=== PATIENT | male | born 1940 | race Caucasian/White ===

== ENCOUNTER 2017-01-27 10:00 | Outpatient (RCR) | payer MEDICARE, OTHER ==
--- NOTE | 2017-01-19 16:19 | PT INITIAL EVALUATION ---
MEDICAL DIAGNOSIS: Right Knee Pain and Effusion, Gastrocnemius Strain TREATMENT DIAGNOSIS: Right Knee Pain and Effusion, Gastrocnemius Strain DATE OF ONSET: 01/16/17 SUBJECTIVE: Kevon is a 76 year-old male presenting to physical therapy following recent injury to his R knee that occurred when going up stairs on 01/13/17. Pt reported that he felt a "pop" when he got to the last two stairs and had intense pain and since has had increased pain and swelling in the posterior and lateral knee. Pt had an x-ray which was negative for fracture, and then went to see an orthopaedic surgeon who suggested he try PT. Pt has been wearing neoprene sleeve and was told to ice his knee to decrease pain and inflammation. However, he reports that he has not done any icing. Pain was initially posterior and lateral in the knee and calf, but since is just in the lateral knee rated at 4-5/10. Pain increases with twisting and pressure, but goes away completely with rest. REHAB PROBLEM LIST: Increased Pain Decreased ROM Decreased Strength Decreased Endurance Decreased Function Decreased ADL's Decreased Mobility Decreased Gait PREVIOUS MEDICAL HISTORY: See EMR OCCUPATION: OBJECTIVE: Pt has mild swelling surrounding the R knee. ROM: R knee ROM: 2-0-130 with pain/pressure in end ranges Strength: LE MMT not tested secondary to pain. Palpation: Pt is tender to palpation with pitting edema along the lateral joint line. Pt also is tender to palpation at mid lateral gastroc with notable soft tissue nodule. Sensation: Sensation intact to light touch. Special Tests: All ligamentous tests (-), Apply's grind (+), Medial pivot shift (+), Marie Squeeze (-) Mobility: Patella tracking is good without deviation. Gait: Pt has decreased push off on the R LE into PF. Other Objective Findings: FOTO Knee Outcome Measure: 39.5/50 ASSESSMENT: Pt shows signs and symptoms consistent with R lateral meniscal tear as well as lateral gastrocnemius strain with likely partial tear of the proximal aspect with retraction of tissue. MRI is recommended for visualization on the extent of the gastroc tear and if surgical intervention is indicated. Referring provider's office was contacted. Physical therapy is indicated to correct the above listed deficits and return patient to prior level of function in ADL's and recreational activities. Short Term Goals In 3 weeks pt will improve R Knee ROM to full without onset of pain from reductions in swelling for improved mobility with ADL's. In 4 weeks pt will increase R knee strength as tested by MMT to to that of the L knee for improved function with ADL's and recreational activities. In 6 weeks pt will increase R gastroc strength to equal to that of the L knee for improved function with ADL's and recreational activities. Patient's Goals Decrease pain and return to PLOF PLAN: Patient to be seen for Manual Therapy/STM/MET Ice/Heat Range of Motion Ultrasound Stretching Iontophoresis Neuromuscular Re-ed Closed Chain Program Electrical Stim Posture/Body mechanics Gait Trg/Balance Trg Biofeedback Home Exercise Program Mech./Manual Traction Therapeutic Activities 3x/Week for 6 Weeks If you have any questions, comments, or concerns about this report or plan, please contact me at . Thank you, Mima Fleming, PT, DPT, CLT MTDD
[~2017-01-27 10:00] MED LIST: ALE70 PO; ASPI-715 PO; ATOM80CA3 PO; CALC600T59 PO; CEP500 PO; CHOL10005 PO; CRAN400C2 PO; EZET1TAB53 PO; FLAX100027 PO; ISOS30TA51 PO; LANS30CA70 PO; METH5TAB85 PO; METO25TA91 PO; MULT-1335 PO; NIT4 SL
--- NOTE | 2017-02-16 09:24 | PT PLAN OF CARE ---
Physician: Jayden Parham MD Patient is being seen: 2-3x/Week Therapist: Mima Fleming, PT, DPT, CLT Medical Diagnosis: Right Knee Pain and Effusion, Gastrocnemius Strain Treatment Diagnosis: Right Knee Pain and Effusion, Gastrocnemius Strain Date of Onset: 01/16/17 Date of Initial Evaluation: 01/19/17 Date patient was last seen: 01/27/17 Number of treatments: 4 Number of cancellations/No shows: 0 INTERVENTIONS: Manual Therapy/STM/MET Ice/Heat Range of Motion Ultrasound Stretching Iontophoresis Neuromuscular Re-ed Closed Chain Program Electrical Stim Posture/Body mechanics Gait Trg/Balance Trg Biofeedback Home Exercise Program Mech./Manual Traction Therapeutic Activities GOALS: In 3 weeks pt will improve R Knee ROM to full without onset of pain from reductions in swelling for improved mobility with ADL's. MET In 4 weeks pt will increase R knee strength as tested by MMT to to that of the L knee for improved function with ADL's and recreational activities. In Progress In 6 weeks pt will increase R gastroc strength to equal to that of the L knee for improved function with ADL's and recreational activities. In Progress PATIENT'S GOAL: Decrease pain and return to PLOF Status of Patient's Goals: 1/3 MET, 2/3 Progressing Patient Compliance: Good Prognosis: Good Reasons for discharge from therapy: Kevon is to discharge from physical therapy at this time secondary to MD preference. At the time of discharge PT and MD correspondence on gastroc imaging for muscle tear was occurring for assessment on if surgical intervention was warranted for successful repair with this patient's high level of activity. Throughout treatment pt showed improved progress in decreasing pain status and maintaining knee and ankle ROM. Pt is to seek PT at a later time, when cleared by MD, to address lingering deficits for return to prior level of function. ROM: R knee ROM: 2-0-130 Strength: LE MMT not tested secondary to pain. Palpation: Pt is tender to palpation with pitting edema along the lateral joint line. Pt also is tender to palpation at mid lateral gastroc with notable soft tissue nodule. Special Tests: All ligamentous tests (-), Apply's grind (+), Medial pivot shift (+), Marie Squeeze (-) Mobility: Patella tracking is good without deviation. If you have any questions or concerns, please feel free to contact me at [phone]. Thank you, Mima Fleming, PT, DPT, CLT MTDD
== END 2017-01-27 18:00 | disposition home or self-care (01) ==
LOC: PT 10:00
PROVIDERS: ATTEND Orthopaedic Surgery
DX: S86.111A Strain of other muscle(s) and tendon(s) of posterior muscle group at lower leg level, right leg, initial encounter (principal); M25.561 Pain in right knee; M25.461 Effusion, right knee; X50.9XXA Other and unspecified overexertion or strenuous movements or postures, initial encounter
CPT/HCPCS: 97162

== ENCOUNTER 2017-05-22 11:00 | Outpatient (RCR) | payer MEDICARE, OTHER ==
[2017-04-19 13:32] VITALS: BP_SYST 118; BP_SYST 92; BP_DIAS 60; BP_DIAS 80
[2017-04-21 17:32] VITALS: BP 110/72
[2017-04-21 17:33] VITALS: BP 122/72
[2017-04-24 18:04] VITALS: BP 108/64
[2017-04-24 18:05] VITALS: BP 92/58
[2017-05-01 12:43] VITALS: BP_SYST 122; BP_SYST 138; BP_DIAS 64; BP_DIAS 70
[2017-05-05 17:07] VITALS: BP 118/64
[2017-05-05 17:08] VITALS: BP 110/64
[2017-05-08 17:35] VITALS: BP 132/70
[2017-05-08 17:36] VITALS: BP 117/64
[2017-05-10 12:45] VITALS: BP 118/64
[2017-05-10 12:46] VITALS: BP 128/80
[2017-05-12 12:49] VITALS: BP_SYST 115; BP_SYST 118; BP_DIAS 70; BP_DIAS 76
[2017-05-15 12:48] VITALS: BP 124/66
[2017-05-15 12:49] VITALS: BP 104/78
[2017-05-17 12:49] VITALS: BP 120/68
[2017-05-17 12:50] VITALS: BP 120/78
[2017-05-19 13:36] VITALS: BP 117/70
[2017-05-19 13:37] VITALS: BP 118/84
[2017-05-22 16:40] VITALS: BP 118/72
[2017-05-22 16:41] VITALS: BP 128/80
== END 2017-05-22 18:00 | disposition home or self-care (01) ==
LOC: CARD 11:00
PROVIDERS: ATTEND Internal Medicine Cardiovascular Disease
DX: I35.9 Nonrheumatic aortic valve disorder, unspecified (principal); Z95.1 Presence of aortocoronary bypass graft; I73.00 Raynaud's syndrome without gangrene
CPT/HCPCS: 93798

== ENCOUNTER → 2017-08-31 | Outpatient (CLI) | payer MEDICARE, OTHER ==
[2017-08-31 12:10] LABS: PLATELET COUNT, AUTOMATED 183 K/uL (150-450)
== END ==
LOC: LAB 11:58
PROVIDERS: ATTEND Internal Medicine
DX: R53.83 Other fatigue (principal)
CPT/HCPCS: 36415; 82728; 85025; 85045

== ENCOUNTER 2017-09-16 12:22 | Emergency (ER) | payer MEDICARE, OTHER ==
[~2017-09-16 12:22] MED LIST changes: -FLUO40CA76 PO; -ROSU20TA23 PO
[2017-09-16] MEDS ORDERED: NS(*) 0.9% 500 ML BAG 500 ML IV ONE (12:31)
--- NOTE | 2017-09-16 12:37 | ER Report ---
History and Physical Time Seen By MD: 12:00 Hx. of Stated Complaint: PATIENT REPORTS THAT HE HASN'T HAD A BOWEL MOVEMENT SINCE MONDAY HPI/ROS CHIEF COMPLAINT: Constipation HISTORY OF PRESENT ILLNESS: This is a 76-year-old male who presents to the emergency department via EMS for concerns of constipation. Patient states that he's not had a bowel movement for 2 days. Having significant abdominal pain. According to EMS the patient was laying on the ground when they arrived, as the pain was so intense. Patient states he did have a colonoscopy approximately 2 weeks ago at [facility]. Patient has had abdominal surgery. Patient was given Zofran and fentanyl and round, patient states the pain and nausea have improved. However patient does appear to be anxious and uncomfortable. Chills no fever. No chest pain or shortness of breath. Patient has also had aortic valve replacement. No rashes or headaches. REVIEW OF SYSTEMS: Constitutional: As above. Eyes: No discharge. ENT: No sore throat. Cardiovascular: No chest pain, no palpitations. Respiratory: No cough, no shortness of breath. Gastrointestinal: As above. Genitourinary: No hematuria. Musculoskeletal: No back pain. Skin: No rashes. Neurological: No headache. Allergies: Coded Allergies: No Known Allergies (Verified Allergy, Mild, 05/21/15) Home Meds Reported Medications Fluoxetine Hcl (PROZAC) 40 Mg Capsule, 40 MG PO QDAY, CAPSULE 09/16/17 Rosuvastatin Calcium (CRESTOR) 20 Mg Tablet, 10 MG PO QDAY 09/16/17 Cholecalciferol (Vitamin D3) (VITAMIN D3) 1,000 Unit Tablet, 1000 UNIT PO DAILY , TAB 05/21/15 Flaxseed Oil (Flax Oil) 1,000 Mg Capsule, 1000 MG PO DAILY, 0 Refills 06/12/09 Aspirin (Aspirin) 81 Mg Tablet.dr, 81 MG PO DAILY, 0 Refills 06/12/09 Multivitamins W-Minerals (Multiple Vitamin) 1 Tab Tablet, 1 TAB PO DAILY, 0 Refills 06/12/09 Metoprolol Succinate (Toprol Xl) 25 Mg Tab.sr.24h, 12.5 MG PO DAILY, 0 Refills 06/12/09 Lansoprazole (Prevacid) 30 Mg Capsule.dr, 30 MG PO QDAY, 0 Refills 06/12/09 Nitroglycerin (Nitroquick) 0.4 Mg Subl, 0.4 MG SL PRN, 0 Refills 06/12/09 Discontinued Reported Medications Methylphenidate Hcl (RITALIN) 5 Mg Tablet, PO DAILY 05/21/15 Ezetimibe/Simvastatin (Vytorin 10-40 Mg Tablet) 1 Tab Tablet, 1 TAB PO DAILY, 0 Refills 06/12/09 Isosorbide Mononitrate (Imdur) 30 Mg Tab.sr.24h, 30 MG PO QDAY, 0 Refills 06/12/09 Past Medical/Surgical History The patient has a past medical and surgical history of bypass, heart attack, angina, CABG, hypertension, hypercholesterolemia, urinary tract infections, arthritis, chronic back pain, hard of hearing, wears glasses, depression, hernia repair, back surgery. Reviewed Nurses Notes: Yes Hx Smoking: No Smoking Status: Never Smoker Hx Substance Use Disorder: No Hx Alcohol Use: No Constitutional Vital Sign - Last 24 Hours 09/16/17 09/16/17 09/16/17 09/16/17 12:22 12:24 12:48 12:52 Temp 97.9 Pulse ??? 55 B/P (MAP) 134/80 (98) 134/80 117/67 (84) Pulse Ox 94 09/16/17 09/16/17 09/16/17 09/16/17 13:00 13:15 13:22 13:45 B/P (MAP) 131/79 (96) 111/69 (83) 113/65 (81) Pulse Ox 91 09/16/17 09/16/17 09/16/17 09/16/17 13:52 14:00 14:15 14:30 Pulse 65 66 68 B/P (MAP) 116/71 (86) 120/67 (84) 110/70 (83) Pulse Ox 94 86 88 09/16/17 09/16/17 09/16/17 15:00 16:34 16:35 Pulse 70 74 B/P (MAP) 118/74 (89) Pulse Ox 92 92 Physical Exam General Appearance: The patient is alert, has no immediate need for airway protection and no signs of toxicity, appears anxious. Eyes: Pupils equal and round no pallor or injection. ENT, Mouth: Mucous membranes are moist. Respiratory: There are no retractions, lungs are clear to auscultation. Cardiovascular: Regular rate and rhythm, distant, no murmurs, clicks or rubs. Gastrointestinal: Abdomen is firm, tenderness to the lower quadrants and the left upper quadrant. Left upper quadrant has continuous sounding bowels. Distant tinkles in the right lower quadrant, absent in the left lower quadrant. Intermittent tinkles to the right upper quadrant. No masses. Neurological: Alert and oriented 4. Moving all extremities. Following all commands. No focal neuro deficits. Skin: Warm and dry, no rashes. Musculoskeletal: Neck is supple non tender. Extremities are nontender, nonswollen and have full range of motion. DIFFERENTIAL DIAGNOSIS: After history and physical exam differential diagnosis was considered for abdominal pain including but not limited to appendicitis, cholecystitis, gastritis and urinary tract infection. Medical Decision Making Data Points Result Diagram: 09/16/17 1220 09/16/17 1220 Laboratory Hematology Test 09/16/17 12:20 09/16/17 13:51 Red Blood Count 5.15 M/uL (4.00-5.60) Mean Corpuscular Volume 89.1 fL (80.0-96.0) Mean Corpuscular Hemoglobin 31.1 pg (26.0-33.0) Mean Corpuscular Hemoglobin Concent 34.9 g/dL (32.0-36.0) Red Cell Distribution Width 14.7 % (11.5-14.5) Mean Platelet Volume 8.0 fL (7.2-11.1) Neutrophils (%) (Auto) 75.4 % (39.4-72.5) Lymphocytes (%) (Auto) 17.4 % (17.6-49.6) Monocytes (%) (Auto) 6.3 % (4.1-12.4) Eosinophils (%) (Auto) 0.5 % (0.4-6.7) Basophils (%) (Auto) 0.4 % (0.3-1.4) Nucleated RBC Relative Count (auto) 0.1 /100WBC Neutrophils # (Auto) 5.6 K/uL (2.0-7.4) Lymphocytes # (Auto) 1.3 K/uL (1.3-3.6) Monocytes # (Auto) 0.5 K/uL (0.3-1.0) Eosinophils # (Auto) 0.0 K/uL (0.0-0.5) Basophils # (Auto) 0.0 K/uL (0.0-0.1) Nucleated RBC Absolute Count (auto) 0.01 K/uL Peripheral Blood Smear No Y/N Sodium Level 136 mmol/L (137-145) Potassium Level 4.6 mmol/L (3.5-5.0) Chloride Level 99 mmol/L (98-107) Carbon Dioxide Level 27 mmol/L (22-30) Blood Urea Nitrogen 23 mg/dl (9-21) Creatinine 0.90 mg/dl (0.66-1.25) Glomerular Filtration Rate Calc > 60.0 Random Glucose 109 mg/dl (75-110) Calcium Level 10.1 mg/dl (8.4-10.2) Total Bilirubin 0.6 mg/dl (0.2-1.3) Aspartate Amino Transf (AST/SGOT) 33 U/L (0-35) Alanine Aminotransferase (ALT/SGPT) 35 U/L (0-56) Alkaline Phosphatase 65 U/L (0-126) Total Protein 7.2 g/dl (6.3-8.2) Albumin 4.5 g/dl (3.5-5.0) Urine Color Yellow Urine Clarity Clear Urine pH 5.0 pH (4.8-9.5) Urine Specific Cent[place] 1.030 Urine Protein Negative mg/dL (NEGATIVE) Urine Glucose (UA) Negative mg/dL (NEGATIVE) Urine Ketones Trace mg/dL (NEGATIVE) Urine Blood Negative (NEGATIVE) Urine Nitrite Negative (NEGATIVE) Urine Bilirubin Negative (NEGATIVE) Urine Urobilinogen Negative mg/dL (0.2-1.9) Urine Leukocyte Esterase Negative (NEGATIVE) Urine RBC None /HPF (0-2/HPF) Urine WBC None /HPF (0-5/HPF) Urine Squamous Epithelial Cells None /LPF (</=FEW) Urine Bacteria Negative /HPF (NONE-FEW) Urine Hyaline Casts Few /LPF (NONE-FEW) Urine Mucus None /HPF (NONE-FEW) Chemistry Test 09/16/17 12:20 09/16/17 13:51 White Blood Count 7.5 k/uL (4.5-11.0) Red Blood Count 5.15 M/uL (4.00-5.60) Hemoglobin 16.0 g/dL (14.0-18.0) Hematocrit 45.9 % (42.0-52.0) Mean Corpuscular Volume 89.1 fL (80.0-96.0) Mean Corpuscular Hemoglobin 31.1 pg (26.0-33.0) Mean Corpuscular Hemoglobin Concent 34.9 g/dL (32.0-36.0) Red Cell Distribution Width 14.7 % (11.5-14.5) Platelet Count 227 K/uL (150-450) Mean Platelet Volume 8.0 fL (7.2-11.1) Neutrophils (%) (Auto) 75.4 % (39.4-72.5) Lymphocytes (%) (Auto) 17.4 % (17.6-49.6) Monocytes (%) (Auto) 6.3 % (4.1-12.4) Eosinophils (%) (Auto) 0.5 % (0.4-6.7) Basophils (%) (Auto) 0.4 % (0.3-1.4) Nucleated RBC Relative Count (auto) 0.1 /100WBC Neutrophils # (Auto) 5.6 K/uL (2.0-7.4) Lymphocytes # (Auto) 1.3 K/uL (1.3-3.6) Monocytes # (Auto) 0.5 K/uL (0.3-1.0) Eosinophils # (Auto) 0.0 K/uL (0.0-0.5) Basophils # (Auto) 0.0 K/uL (0.0-0.1) Nucleated RBC Absolute Count (auto) 0.01 K/uL Peripheral Blood Smear No Y/N Glomerular Filtration Rate Calc > 60.0 Calcium Level 10.1 mg/dl (8.4-10.2) Total Bilirubin 0.6 mg/dl (0.2-1.3) Aspartate Amino Transf (AST/SGOT) 33 U/L (0-35) Alanine Aminotransferase (ALT/SGPT) 35 U/L (0-56) Alkaline Phosphatase 65 U/L (0-126) Total Protein 7.2 g/dl (6.3-8.2) Albumin 4.5 g/dl (3.5-5.0) Urine Color Yellow Urine Clarity Clear Urine pH 5.0 pH (4.8-9.5) Urine Specific Centuria 1.030 Urine Protein Negative mg/dL (NEGATIVE) Urine Glucose (UA) Negative mg/dL (NEGATIVE) Urine Ketones Trace mg/dL (NEGATIVE) Urine Blood Negative (NEGATIVE) Urine Nitrite Negative (NEGATIVE) Urine Bilirubin Negative (NEGATIVE) Urine Urobilinogen Negative mg/dL (0.2-1.9) Urine Leukocyte Esterase Negative (NEGATIVE) Urine RBC None /HPF (0-2/HPF) Urine WBC None /HPF (0-5/HPF) Urine Squamous Epithelial Cells None /LPF (</=FEW) Urine Bacteria Negative /HPF (NONE-FEW) Urine Hyaline Casts Few /LPF (NONE-FEW) Urine Mucus None /HPF (NONE-FEW) Urinalysis Test 09/16/17 13:51 Urine Color Yellow Urine Clarity Clear Urine pH 5.0 pH (4.8-9.5) Urine Specific Centuria 1.030 Urine Protein Negative mg/dL (NEGATIVE) Urine Glucose (UA) Negative mg/dL (NEGATIVE) Urine Ketones Trace mg/dL (NEGATIVE) Urine Blood Negative (NEGATIVE) Urine Nitrite Negative (NEGATIVE) Urine Bilirubin Negative (NEGATIVE) Urine Urobilinogen Negative mg/dL (0.2-1.9) Urine Leukocyte Esterase Negative (NEGATIVE) Urine RBC None /HPF (0-2/HPF) Urine WBC None /HPF (0-5/HPF) Urine Squamous Epithelial Cells None /LPF (</=FEW) Urine Bacteria Negative /HPF (NONE-FEW) Urine Hyaline Casts Few /LPF (NONE-FEW) Urine Mucus None /HPF (NONE-FEW) EKG/Imaging Imaging CT abdomen and pelvis with IV contrast Indication: Lower abdominal pain. Comparison: None available. . Technique: Axial CT images were obtained through the abdomen and pelvis during injection of nonionic iodinated intravenous contrast. Reformatted coronal and sagittal images were also obtained. One of the following dose optimization techniques was utilized in the performance of this exam: Automated exposure control; adjustment of the mA and/ or kV according to the patient's size; or use of an iterative reconstruction technique. Specific details can be referenced in the facility's radiology CT exam operational policy. Contrast: 85 ml of Isovue-370 IV contrast. Findings: Lower lung teague: Limited views lower lung field are unremarkable. Mild coronary artery calcifications. Liver: No focal parenchymal abnormality of the liver. Biliary: Gallbladder appears unremarkable as well as the intra and extra hepatic biliary system. Pancreas: Normal appearance. Spleen: Normal appearance. Adrenal glands: Unremarkable. Kidneys / retroperitoneum: No evidence of nephrolithiasis or hydronephrosis. No focal normality. Bowel / peritoneum / mesenteries: Sigmoid colon is tortuous. There are multiple diverticula seen along the colon more so on the descending sigmoid region. No pericolonic inflammation. Prominent stool seen in the rectosigmoid colon. The colon shows no other focal abnormality. The appendix is normal. Small bowel shows no focal abnormality or obstruction. Stomach is decompressed and grossly normal. No free air, free fluid, fluid collections or areas of inflammation. Small umbilical hernia left inguinal hernia containing fat. Lymph node assessment: No pathologic adenopathy identified. Pelvic structures: Prostate is mildly enlarged and heterogeneous this does cause mild impression to the urinary bladder. No focal normality. The remaining pelvic structures visualized within normal limits. Vessels: Mild atherosclerotic calcifications seen throughout a nonaneurysmal abdominal aorta and branches. Incidental note of retroaortic left renal vein. Musculoskeletal / Body wall: No acute or aggressive osseous abnormality. Degenerative changes of spine. There is concavity to the mid superior endplate of L5 vertebral body. T12 vertebral body does show anterior compression approximately 50 percent without retropulsion. IMPRESSION: 1. No acute intra-abdominal abnormality. No bowel obstruction. 2. Diverticulosis without radiographic indication diverticulitis. 3. Prominent stool seen in the rectosigmoid colon. 4. There is concavity to the mid superior endplate of L5 vertebral body. Unsure if this is a prominent Schmorl's node or mild compression of indeterminate age. T12 vertebral body does show anterior compression approximately 50 percent without retropulsion. The age of which is indeterminate. 5. Other chronic findings as above. Report Dictated By: Austen Bateman at 09/16/2017 2:16 PM Report E-Signed By: Austen Bateman at 09/16/2017 2:25 PM WSN:[id number] ED Course/Re-evaluation Clinical Indication for ER IV: Hydration, IV Access ED Course The patient was admitted to room. History and physical were obtained. Differential diagnoses were considered. An IV was started. A CBC, CMP and UA were obtained. Lab studies are unremarkable. UA showing trace ketones otherwise unremarkable. Patient was given a 500 mL normal saline bolus. A CT of the abdomen and pelvis was negative for obstruction. I did attempt a digital disimpaction, but was unable to remove stool as the stool was too far into the rectal vault. The patient did attempt a disimpaction at home prior to arrival. Soap suds enema with 3 attempts with a small amount of stool. Patient states he is ready to go home. I did send the patient home with a bottle of mag citrate. The patient was also instructed to follow-up with his primary care provider within one week for reevaluation sooner if the cuts patient doesn't resolved. Patient was also instructed to follow-up with Dr. Collazo for his hemorrhoids. The patient had no other questions or concerns at this time discharged home. 09/16/2017 2:43:58 pm no sign of bowel obstruction or impaction on CT. I did review the results with the patient. I also did attempt to digitally remove the stool in the vault, however I was unable to retrieve the stool, we'll go ahead and proceed with a soapsuds enema. Decision to Disposition Date: Sep 16, 2017 Decision to Disposition Time: 16:24 Depart Departure Latest Vital Signs Vital Signs Date Time Temp Pulse Resp B/P (MAP) Pulse Ox O2 Delivery O2 Flow Rate FiO2 09/16/17 16:35 74 92 09/16/17 16:34 118/74 (89) 09/16/17 12:24 97.9 Impression: Primary Impression: Constipation Condition: Improved Disposition: HOME OR SELF-CARE Referrals: MANNIE GUPTA MD (PCP) JOSE ANGEL COLLAZO MD 10 Days Patient Instructions: Constipation (ED) Additional Instructions: Drink the Mag citrate when you go home. Continue drinking water. Continue with your regular medications. Follow up with Dr. Collazo for your hemorrhoids. Follow up with your PCP as scheduled, sooner if the constipation does not resolve. Return to the ED for any other concerns or worsening symptoms. Problem Qualifiers Primary Impression: Constipation Constipation type: unspecified constipation type Qualified Codes: K59.00 - Constipation, unspecified PADMINI LANTIGUA [employer] ADMINISTRATOR-BC Sep 16, 2017 12:37
[2017-09-16 12:43] LABS: PLATELET COUNT, AUTOMATED 227 K/uL (150-450)
[2017-09-16] MEDS ORDERED: IOPAMIDOL 76% 100 ML INFUS BTL 100 ML ONE (12:56)
[2017-09-16] MEDS ORDERED: ROSU20TA23 PO (13:00)
[2017-09-16] MEDS ORDERED: FLUO40CA76 PO (13:02)
--- NOTE | 2017-09-16 14:28 | RADIOLOGY IMAGING REPORT ---
FACILITY: [facility] PATIENT NAME: Aime Calderón : 1940 MR: [id number] V: [id number] EXAM DATE: ORDERING PHYSICIAN: PADMINI LANTIGUA TECHNOLOGIST: Location: [facility] [place] Patient: Aime Calderón : 1940 Visit/Account:[id number] Date of Sevice: 09/16/2017 CT abdomen and pelvis with IV contrast Indication: Lower abdominal pain. Comparison: None available. . Technique: Axial CT images were obtained through the abdomen and pelvis during injection of nonioni c iodinated intravenous contrast. Reformatted coronal and sagittal images were also obtained. One of the following dose optimization techniques was utilized in the performance of this exam: Autom ated exposure control; adjustment of the mA and/or kV according to the patient's size; or use of an i terative reconstruction technique. Specific details can be referenced in the facility's radiology C T exam operational policy. Contrast: 85 ml of Isovue-370 IV contrast. Findings: Lower lung teague: Limited views lower lung field are unremarkable. Mild coronary artery calcificatio ns. Liver: No focal parenchymal abnormality of the liver. Biliary: Gallbladder appears unremarkable as well as the intra and extra hepatic biliary system. Pancreas: Normal appearance. Spleen: Normal appearance. Adrenal glands: Unremarkable. Kidneys / retroperitoneum: No evidence of nephrolithiasis or hydronephrosis. No focal normality. Bowel / peritoneum / mesenteries: Sigmoid colon is tortuous. There are multiple diverticula seen ila g the colon more so on the descending sigmoid region. No pericolonic inflammation. Prominent stool se en in the rectosigmoid colon. The colon shows no other focal abnormality. The appendix is normal. Sma ll bowel shows no focal abnormality or obstruction. Stomach is decompressed and grossly normal. No free air, free fluid, fluid collections or areas of inflammation. Small umbilical hernia left ingu inal hernia containing fat. Lymph node assessment: No pathologic adenopathy identified. Pelvic structures: Prostate is mildly enlarged and heterogeneous this does cause mild impression t o the urinary bladder. No focal normality. The remaining pelvic structures visualized within normal l imits. Vessels: Mild atherosclerotic calcifications seen throughout a nonaneurysmal abdominal aorta and bran ches. Incidental note of retroaortic left renal vein. Musculoskeletal / Body wall: No acute or aggressive osseous abnormality. Degenerative changes of spin e. There is concavity to the mid superior endplate of L5 vertebral body. T12 vertebral body does show anterior compression approximately 50 percent without retropulsion. IMPRESSION: 1. No acute intra-abdominal abnormality. No bowel obstruction. 2. Diverticulosis without radiographic indication diverticulitis. 3. Prominent stool seen in the rectosigmoid colon. 4. There is concavity to the mid superior endplate of L5 vertebral body. Unsure if this is a prominen t Schmorl's node or mild compression of indeterminate age. T12 vertebral body does show anterior comp ression approximately 50 percent without retropulsion. The age of which is indeterminate. 5. Other chronic findings as above. Report Dictated By: Austen Bateman at 09/16/2017 2:16 PM Report E-Signed By: Austen Bateman at 09/16/2017 2:25 PM WSN:[id number]
[2017-09-16] MEDS ORDERED: MAGNESIUM CITRATE 300 ML BTL PO ONE (16:30)
[2017-09-16 16:34] VITALS: BP 118/74
== END 2017-09-16 16:43 | disposition home or self-care (01) ==
LOC: ER 12:28
DX: K59.00 Constipation, unspecified (principal); I25.2 Old myocardial infarction; I10 Essential (primary) hypertension; E78.00 Pure hypercholesterolemia, unspecified; G89.29 Other chronic pain; M54.9 Dorsalgia, unspecified; F32.9 Major depressive disorder, single episode, unspecified; Z79.899 Other long term (current) drug therapy
CPT/HCPCS: 74177; 81001; 85025; 99284; J7040; Q9967; 82040; 82247; 82310; 82374; 82435; 82565; 82947; 84075; 84132; 84155; 84295; 84450; 84460; 84520

== ENCOUNTER → 2017-09-16 | Outpatient (CLI) | payer MEDICARE, OTHER ==
[~2017-09-16] MED LIST changes: +FLUO40CA76 PO; +ROSU20TA23 PO
== END ==
LOC: AMB 12:06
PROVIDERS: ATTEND Nurse Practitioner
DX: R10.84 Generalized abdominal pain (principal); K59.00 Constipation, unspecified
CPT/HCPCS: A0425; A0427

== ENCOUNTER 2017-10-07 07:54 | Emergency (ER) | payer MEDICARE, OTHER ==
[~2017-10-07 07:54] MED LIST changes: -CALC-1046
[2017-10-07 08:08] LABS: PLATELET COUNT, AUTOMATED 196 K/uL (150-450)
--- NOTE | 2017-10-07 08:09 | ER Report ---
History and Physical Time Seen By MD: 07:45 HPI/ROS CHIEF COMPLAINT: Expressive aphasia abnormal gait (stroke alert called upon patient arrival.) HISTORY OF PRESENT ILLNESS: Patient is a 76-year-old male with significant past medical history for coronary artery disease and bypass most recently in 2017. Apparently EMS was called by family when they noticed this morning at approximately 7:30 AM patient was unable to speak or form words and was having an abnormal gait. He apparently was seen at 4 AM letting his dog out it is unclear if he was having balance issues or speech problems at that time he was last seen well around bedtime last night around 10 PM. Patient has no prior history of stroke. History at this time is limited as patient can only respond to yes no questions but is unable to form words. Additional history by EMS. Prehospital blood sugar was 97 mg/dL. EMS states the from the patient is on no blood thinners other than aspirin REVIEW OF SYSTEMS: Constitutional: No fever, no chills. Eyes: No discharge. ENT: No sore throat. Cardiovascular: No chest pain, no palpitations. Respiratory: No cough, no shortness of breath. Gastrointestinal: No abdominal pain, no vomiting. Genitourinary: No hematuria. Musculoskeletal: No back pain. Skin: No rashes. Neurological: No headache. Gait disturbance expressive aphasia. Allergies: Coded Allergies: No Known Allergies (Verified Allergy, Mild, 10/07/17) Home Meds Reported Medications Calcium Carbonate (Calcium) 500 Mg Tab.chew 10/07/17 Iron Polysaccharides Complex (POLYSACCHARIDE IRON 150) 150 Mg Capsule, 325 MG PO, CAPSULE 10/03/17 Fluoxetine Hcl (PROZAC) 40 Mg Capsule, 40 MG PO QDAY, CAPSULE 09/16/17 Rosuvastatin Calcium (CRESTOR) 20 Mg Tablet, 10 MG PO QDAY 09/16/17 Cholecalciferol (Vitamin D3) (VITAMIN D3) 1,000 Unit Tablet, 1000 UNIT PO DAILY, TAB 05/21/15 Flaxseed Oil (Flax Oil) 1,000 Mg Capsule, 1000 MG PO DAILY, 0 Refills 06/12/09 Aspirin (Aspirin) 81 Mg Tablet.dr, 81 MG PO DAILY, 0 Refills 06/12/09 Multivitamins W-Minerals (Multiple Vitamin) 1 Tab Tablet, 1 TAB PO DAILY, 0 Refills 06/12/09 Metoprolol Succinate (Toprol Xl) 25 Mg Tab.sr.24h, 12.5 MG PO DAILY, 0 Refills 06/12/09 Lansoprazole (Prevacid) 30 Mg Capsule.dr, 30 MG PO QDAY, 0 Refills 06/12/09 Nitroglycerin (Nitroquick) 0.4 Mg Subl, 0.4 MG SL PRN, 0 Refills 06/12/09 Discontinued Reported Medications Cyanocobalamin (Vitamin B-12) (Vitamin B12) Unknown Strength Tablet 10/02/17 Past Medical/Surgical History Past medical history for coronary artery disease, hyperlipidemia, myocardial infarction 1999 history of CABG in September 2016 coronary stenting in 2001 aortic valve replacement. Status post hernia repair in 1985 history of vasectomy. Hx Smoking: No Smoking Status: Never Smoker Hx Substance Use Disorder: No Hx Alcohol Use: No Constitutional Vital Sign - Last 24 Hours 10/07/17 10/07/17 10/07/17 10/07/17 07:56 07:56 08:00 08:09 Temp 97.4 Pulse 55 58 Resp 16 23 B/P (MAP) 150/101 157/96 (116) 154/91 (112) Pulse Ox 97 94 O2 Delivery Room Air 10/07/17 10/07/17 10/07/17 10/07/17 08:15 08:24 08:30 08:39 Pulse 58 58 Resp 16 9 B/P (MAP) 152/101 (118) 155/98 (117) Pulse Ox 88 93 10/07/17 10/07/17 10/07/17 10/07/17 08:59 09:04 09:15 09:19 Pulse 59 57 Resp 15 0 B/P (MAP) 150/97 (114) 133/79 (97) Pulse Ox 98 98 10/07/17 10/07/17 10/07/17 10/07/17 09:30 09:34 09:45 09:50 Pulse 56 58 Resp 13 12 B/P (MAP) 133/87 (102) 127/91 (103) Pulse Ox 98 97 10/07/17 10/07/17 10/07/17 10/07/17 10:00 10:05 10:15 10:20 Pulse 58 56 Resp 13 14 B/P (MAP) 127/90 (102) 128/96 (107) Pulse Ox 99 98 10/07/17 10:25 Pulse 56 Resp 9 Pulse Ox 96 Physical Exam General/Constitutional: Patient is awake, alert, nontoxic and in no acute respiratory distress. Head: Normocephalic and atraumatic. Eyes: Conjunctival clear, Pupils are equal and reactive to light. Sclera are clear and anicteric. Ears:External canals are clear. Tympanic membranes are clear with normal landmarks and light reflex. Nares: No rhinorrhea or bleeding. Turbinates are pink and moist. Oropharyngeal: Mucous membranes are moist. There is no pharyngeal erythema or exudate. There are no palatal petechiae. Uvula is midline and symmetrical. Neck: Supple, no adenopathy. Cardiovascular: Heart is regular rate and rhythm without audible murmurs, rubs or gallops. Pulmonary: Lungs are clear to auscultation bilaterally. There are no wheezes, rales, or rhonchi. Chest rise is symmetrical Abdomen: Soft, nontender, no guarding or peritoneal signs. Extremities: No gross deformities, No peripheral cyanosis. Able to move all 4 extremities. Neuro: Alert patient will nod yes or no to questions but unable to form words. Patient seems to be able to move all extremities. Skin: No rashes, skin is warm dry and well perfused. NIH-12 Level of consciousness: Alert -0 Answers 0 questions correctly-2 Performs one task correctly-1 Best Gaze: Partial gaze palsy; but no forced deviation-1 Visual: No visual loss-0 Facial Palsy: Minor paralysis-1 Motor Left Arm: No drift for 10 seconds-0 Motor Right Arm: No drift for 10 seconds-0 Motor Left Leg: No drift for 5 seconds-0 Motor Right Leg: No drift for 5 seconds-0 Limb Ataxia: Present in 2 limbs-2 Sensory: Normal, no sensory loss-0 Best Language: Mute-3 Dysarthria: Severe/unintelligible-2 Extinction and Inattention: No abnormality-0 Medical Decision Making Data Points Result Diagram: 10/07/17 0750 10/07/17 0750 Laboratory Hematology Test 10/07/17 07:50 10/07/17 08:05 10/07/17 09:10 Red Blood Count 5.10 M/uL (4.00-5.60) Mean Corpuscular Volume 90.1 fL (80.0-96.0) Mean Corpuscular Hemoglobin 31.1 pg (26.0-33.0) Mean Corpuscular Hemoglobin Concent 34.6 g/dL (32.0-36.0) Red Cell Distribution Width 14.2 % (11.5-14.5) Mean Platelet Volume 8.1 fL (7.2-11.1) Neutrophils (%) (Auto) 51.1 % (39.4-72.5) Lymphocytes (%) (Auto) 34.1 % (17.6-49.6) Monocytes (%) (Auto) 11.0 % (4.1-12.4) Eosinophils (%) (Auto) 2.8 % (0.4-6.7) Basophils (%) (Auto) 1.0 % (0.3-1.4) Nucleated RBC Relative Count (auto) 0.0 /100WBC Neutrophils # (Auto) 3.0 K/uL (2.0-7.4) Lymphocytes # (Auto) 2.0 K/uL (1.3-3.6) Monocytes # (Auto) 0.6 K/uL (0.3-1.0) Eosinophils # (Auto) 0.2 K/uL (0.0-0.5) Basophils # (Auto) 0.1 K/uL (0.0-0.1) Nucleated RBC Absolute Count (auto) 0.00 K/uL Prothrombin Time 13.2 seconds (12.0-14.4) Prothromb Time International Ratio 1.00 Activated Partial Thromboplast Time 28 seconds (23-35) Sodium Level 136 mmol/L (137-145) Potassium Level 3.9 mmol/L (3.5-5.0) Chloride Level 100 mmol/L (98-107) Carbon Dioxide Level 26 mmol/L (22-30) Blood Urea Nitrogen 23 mg/dl (9-21) Creatinine 1.00 mg/dl (0.66-1.25) Glomerular Filtration Rate Calc > 60.0 Random Glucose 114 mg/dl (75-110) Calcium Level 9.9 mg/dl (8.4-10.2) Total Bilirubin 0.5 mg/dl (0.2-1.3) Aspartate Amino Transf (AST/SGOT) 35 U/L (0-35) Alanine Aminotransferase (ALT/SGPT) 34 U/L (0-56) Alkaline Phosphatase 72 U/L (0-126) Troponin I < 0.012 ng/ml Total Protein 7.5 g/dl (6.3-8.2) Albumin 4.5 g/dl (3.5-5.0) Whole Blood Glucose 108 mg/DL (75-110) Urine Color Yellow Urine Clarity Cloudy Urine pH 7.0 pH (4.8-9.5) Urine Specific [place] 1.023 Urine Protein Negative mg/dL (NEGATIVE) Urine Glucose (UA) Negative mg/dL (NEGATIVE) Urine Ketones Negative mg/dL (NEGATIVE) Urine Blood Negative (NEGATIVE) Urine Nitrite Negative (NEGATIVE) Urine Bilirubin Negative (NEGATIVE) Urine Urobilinogen Negative mg/dL (0.2-1.9) Urine Leukocyte Esterase Negative (NEGATIVE) Urine RBC None /HPF (0-2/HPF) Urine WBC None /HPF (0-5/HPF) Urine Squamous Epithelial Cells None /LPF (</=FEW) Urine Bacteria Negative /HPF (NONE-FEW) Urine Mucus None /HPF (NONE-FEW) Chemistry Test 10/07/17 07:50 10/07/17 08:05 10/07/17 09:10 White Blood Count 5.9 k/uL (4.5-11.0) Red Blood Count 5.10 M/uL (4.00-5.60) Hemoglobin 15.9 g/dL (14.0-18.0) Hematocrit 46.0 % (42.0-52.0) Mean Corpuscular Volume 90.1 fL (80.0-96.0) Mean Corpuscular Hemoglobin 31.1 pg (26.0-33.0) Mean Corpuscular Hemoglobin Concent 34.6 g/dL (32.0-36.0) Red Cell Distribution Width 14.2 % (11.5-14.5) Platelet Count 196 K/uL (150-450) Mean Platelet Volume 8.1 fL (7.2-11.1) Neutrophils (%) (Auto) 51.1 % (39.4-72.5) Lymphocytes (%) (Auto) 34.1 % (17.6-49.6) Monocytes (%) (Auto) 11.0 % (4.1-12.4) Eosinophils (%) (Auto) 2.8 % (0.4-6.7) Basophils (%) (Auto) 1.0 % (0.3-1.4) Nucleated RBC Relative Count (auto) 0.0 /100WBC Neutrophils # (Auto) 3.0 K/uL (2.0-7.4) Lymphocytes # (Auto) 2.0 K/uL (1.3-3.6) Monocytes # (Auto) 0.6 K/uL (0.3-1.0) Eosinophils # (Auto) 0.2 K/uL (0.0-0.5) Basophils # (Auto) 0.1 K/uL (0.0-0.1) Nucleated RBC Absolute Count (auto) 0.00 K/uL Prothrombin Time 13.2 seconds (12.0-14.4) Prothromb Time International Ratio 1.00 Activated Partial Thromboplast Time 28 seconds (23-35) Glomerular Filtration Rate Calc > 60.0 Calcium Level 9.9 mg/dl (8.4-10.2) Total Bilirubin 0.5 mg/dl (0.2-1.3) Aspartate Amino Transf (AST/SGOT) 35 U/L (0-35) Alanine Aminotransferase (ALT/SGPT) 34 U/L (0-56) Alkaline Phosphatase 72 U/L (0-126) Troponin I < 0.012 ng/ml Total Protein 7.5 g/dl (6.3-8.2) Albumin 4.5 g/dl (3.5-5.0) Whole Blood Glucose 108 mg/DL (75-110) Urine Color Yellow Urine Clarity Cloudy Urine pH 7.0 pH (4.8-9.5) Urine Specific [place] 1.023 Urine Protein Negative mg/dL (NEGATIVE) Urine Glucose (UA) Negative mg/dL (NEGATIVE) Urine Ketones Negative mg/dL (NEGATIVE) Urine Blood Negative (NEGATIVE) Urine Nitrite Negative (NEGATIVE) Urine Bilirubin Negative (NEGATIVE) Urine Urobilinogen Negative mg/dL (0.2-1.9) Urine Leukocyte Esterase Negative (NEGATIVE) Urine RBC None /HPF (0-2/HPF) Urine WBC None /HPF (0-5/HPF) Urine Squamous Epithelial Cells None /LPF (</=FEW) Urine Bacteria Negative /HPF (NONE-FEW) Urine Mucus None /HPF (NONE-FEW) Coagulation Test 10/07/17 07:50 Prothrombin Time 13.2 seconds Prothromb Time International Ratio 1.00 Activated Partial Thromboplast Time 28 seconds Urinalysis Test 10/07/17 09:10 Urine Color Yellow Urine Clarity Cloudy Urine pH 7.0 pH (4.8-9.5) Urine Specific [place] 1.023 Urine Protein Negative mg/dL (NEGATIVE) Urine Glucose (UA) Negative mg/dL (NEGATIVE) Urine Ketones Negative mg/dL (NEGATIVE) Urine Blood Negative (NEGATIVE) Urine Nitrite Negative (NEGATIVE) Urine Bilirubin Negative (NEGATIVE) Urine Urobilinogen Negative mg/dL (0.2-1.9) Urine Leukocyte Esterase Negative (NEGATIVE) Urine RBC None /HPF (0-2/HPF) Urine WBC None /HPF (0-5/HPF) Urine Squamous Epithelial Cells None /LPF (</=FEW) Urine Bacteria Negative /HPF (NONE-FEW) Urine Mucus None /HPF (NONE-FEW) EKG/Imaging EKG Interpretation EKG shows sinus rhythm with first-degree AV block. Monitor Interpretation: Normal Sinus Rhythm Imaging FACILITY: [facility] PATIENT NAME: Aime Calderón : 1940 MR: [id number] V: [id number] EXAM DATE: [id number] ORDERING PHYSICIAN: CHRISTOPHER ARAYA TECHNOLOGIST: Location: [facility] Patient: Aime Calderón : 1940 Visit/Account:[id number] Date of Sevice: 10/07/[address] scan without contrast COMPARISONS: Head CT scan without contrast dated June 22, 2016 ADDITIONAL PERTINENT HISTORY: Stroke like symptoms TECHNIQUE: Multiple axial images were obtained from the skull base to the vertex without IV contrast. One of the following dose optimization techniques was utilized in the performance of this exam: Automated exposure control; adjustment of the mA and/or kV according to the patient's size; or use of an iterative reconstruction technique. Specific details can be referenced in the facility's radiology CT exam operational policy. FINDINGS: Midline shift: Negative Ventricles: Mild enlargement of the lateral and third ventricles. Otherwise ne gative. Brain parenchyma: Patchy hypoattenuation within the periventricular and subcortical white matter, nonspecific but likely representing small vessel ischemic change on a chronic basis. No intraparenchymal hemorrhage or mass effect. Slightly more focal region of decreased attenuation involving the subinsular white matter which may represent a more focal region of remote infarct. Extra-axial spaces: Negative Intracranial vasculature: Cavernous internal carotid and distal vertebral artery calcifications. Otherwise negative Osseous structures: Negative Paranasal sinuses and mastoid air cells: Mild mucosal thickening involving both maxillary sinuses. Otherwise negative Surrounding soft tissues and orbits: Negative IMPRESSION: 1. Age related changes as described above. 2. Slightly more focal region of decreased attenuation involving the subinsular white matter which may represent a subacute to early remote area of infarct. 3. No intraparenchymal hemorrhage Report Dictated By: Taqueria Magallanes MD at 10/07/2017 8:21 AM Report E-Signed By: Taqueria Magallanes MD at 10/07/2017 8:26 AM WSN:[email or web address] FACILITY: [facility] PATIENT NAME: Aime Calderón : 1940 MR: [id number] V: [id number] EXAM DATE: [id number] ORDERING PHYSICIAN: CHRISTOPHER ARAYA TECHNOLOGIST: Location: [facility] Patient: Aime Calderón : 1940 Visit/Account:[id number] Date of Sevice: 10/07/2017 CHEST SINGLE AP COMPARISONS: None. ADDITIONAL PERTINENT HISTORY: Stroke FINDINGS: Cardiomediastinal silhouette: Patient status post median sternotomy. Mild cardiomegaly. Pulmonary vasculature: Negative. Lung teague: Background interstitial scarring. No segmental consolidative process. Pleural spaces: Negative. Osseous structures: Negative. Surrounding soft tissues: Negative. IMPRESSION: 1. Mild cardiomegaly. 2. No evidence of acute cardiopulmonary disease. Report Dictated By: Taqueria Magallanes MD at 10/07/2017 8:26 AM Report E-Signed By: Taqueria Magallanes MD at 10/07/2017 8:27 AM WSN:[id number] FACILITY: [facility] PATIENT NAME: Aime Calderón : 1940 MR: [id number] V: [id number] EXAM DATE: [id number] ORDERING PHYSICIAN: CHRISTOPHER ARAYA TECHNOLOGIST: Location: [facility] Patient: Aime Calderón : 1940 Visit/Account:[id number] Date of Sevice: 10/07/2017 CTA of the head and neck with and without contrast: CTA of the neck with and without contrast: Comparisons: None Additional pertinent history: Stroke like symptoms TECHNIQUE: Multiple axial images were obtained from the superior mediastinum through the mid portion of the brain during the continuous infusion of iodinated contrast. 2-D and 3-D reformatted images were obtained off the axial source data. Degrees of stenosis of the cervical internal carotid arteries were obtained using NASCET criteria. One of the following dose optimization techniques was utilized in the performance of this exam: Automated exposure control; adjustment of the mA and/or kV according to the patient's size; or use of an iterative reconstruction technique. Specific details can be referenced in the facility's radiology CT exam operational policy. CONTRAST: 50 mL of Isovue-370 FINDINGS: Thoracic aortic arch/origins of the great vessels: Mild calcified and noncalcified atherosclerotic plaque involving the thoracic aortic arch. No s ignificant stenosis noted at the origins of the great vessels. Vertebral arteries: Patient is left vertebral dominant. Calcified atherosclerotic plaque at the origins of the left vertebral artery without significant stenosis. The remaining portions of the vertebral arteries are unremarkable. Common carotid arteries: Negative Carotid artery bifurcations: Calcified and noncalcified atherosclerotic plaque at the bifurcations of both common carotid arteries. Cervical internal carotid arteries: Negative Surrounding soft tissues: Negative Osseous structures: Mild spondylitic change involving the cervical spine. No acute appearing bony abnormalities. IMPRESSION: 1. Calcified and noncalcified atherosclerotic plaque at the bifurcations of both common carotid arteries without significant stenosis. 2. Mild atherosclerotic disease involving the thoracic aortic arch and origins of the left vertebral artery without significant stenosis. CTA of the head with and without contrast: COMPARISONS: None ADDITIONAL PERTINENT HISTORY: Stroke like symptoms Technique: Multiple axial images were obtained from the skull base to the vertex during the continuous infusion of IV contrast. 2-D and 3-D reformatted were obtained off the axial source data. One of the following dose optimization techniques was utilized in the performance of this exam: automated exposure control; adjustment of the mA and/or kA according to patient size; or use of iterative reconstruction technique. Specific details can be referenced in the facility?s radiology CT exam operational policy. CONTRAST: 50 mL of Isovue-370 FINDINGS: Vascular variants: Azygos A2 segment. Visualized vertebrobasilar system: Minimal calcified atherosclerotic plaque involving the distal left vertebral artery. Distal internal carotid arteries: Cavernous internal carotid artery calcifications. Otherwise negative Internal carotid artery bifurcation: Negative A1 and M1 segments: Negative A2 and M2 segments: Negative Anterior communicating artery: Negative P1 segments: Negative Brain parenchyma: Patchy hypoattenuation within the periventricular and subcortical white matter compatible with small vessel ischemic change on a chronic basis. No intraparenchymal hemorrhage. Osseous structures: Negative Visualized paranasal sinuses and mastoid air cells: Negative IMPRESSION: 1. Minimal atherosclerotic disease involving the arterial vasculature of the head. 2. No evidence of acute intracranial pathology. 3. No significant stenosis or large vessel occlusion noted. Report Dictated By: Taqueria Magallanes MD at 10/07/2017 9:15 AM Repor E-Signed By: Taqueria Magallanes MD at 10/07/2017 9:25 AM WSN:[id number] ED Course/Re-evaluation ED Course 10/07/2017 8:36:02 am who is on-call for telemetry stroke is evaluating the patient. It was felt that we were unable to determine the exact onset of symptoms. Patient states to by self as well as to Dr. Cuadra that he did not quite feel normal at 4:30 so on the last time that we know patient was normal was 11 PM on 10/06/2017. It was felt that the patient is out of the 4-1/2 hour window for thrombolytics. Plan at this time will be CTA of the head and neck looking for large clot. If there appears to be a large clot we will consider sending the patient to a stroke center such as [facility] where they may be able to perform a rescue mercy procedure. If no clot is detected most likely transfer will occur to [facility]. Re-evaluation 10/07/2017 9:47:17 am spoke with neurology who will consult on this patient via tele-stroke. CTA of head and carotids reveal no obvious stenosis or clot. Plan at this time will be transferred to [facility] further stroke team for evaluation. We will fly the patient as this is the safest and fastest method. Patient and family have no questions or concerns at time of disposition. Accepting physician at [facility] is Dr. Montes. The patient will be initially sent and evaluated in the emergency department as beds are tight currently according to the transfer center. We will that the transport team know of disposition. Decision to Disposition Date: Oct 07, 2017 Decision to Disposition Time: 09:48 Depart Departure Latest Vital Signs Vital Signs Date Time Temp Pulse Resp B/P (MAP) Pulse Ox O2 Delivery O2 Flow Rate FiO2 10/07/17 10:25 56 9 96 10/07/17 10:15 128/96 (107) 10/07/17 07:56 97.4 Room Air Impression: Primary Impression: Expressive aphasia Additional Impression: Stroke Condition: Condition Unchanged Disposition: XFER TO [facility] (to [facility]) Problem Qualifiers Additional Impression: Stroke CVA mechanism: other Qualified Codes: I63.8 - Other cerebral infarction CHRISTOPHER ARAYA MD Oct 07, 2017 08:09
--- NOTE | 2017-10-07 08:25 | EKG ---
FACILITY: [facility] PATIENT NAME: ABBE GONZALEZ : [id number] MR: [id number] V: [id number] EXAM DATE: ORDERING PHYSICIAN: CHRISTOPHER ARAYA TECHNOLOGIST: MAXX Test Reason : POSSIBLE STROKE Blood Pressure : / mmHG Vent. Rate : 055 BPM Atrial Rate : 055 BPM P-R Int : 250 ms QRS Dur : 104 ms QT Int : 500 ms P-R-T Axes : 020 049 059 degrees QTc Int : 478 ms Sinus bradycardia with 1st degree AV block Possible Inferior infarct , age undetermined Abnormal ECG No previous ECGs available Confirmed by JOSE ANGEL TREJO ([id number]) on 10/07/2017 4:44:33 PM Referred By: QUIANA Confirmed By:JOSE ANGEL TREJO
--- NOTE | 2017-10-07 08:29 | RADIOLOGY IMAGING REPORT ---
FACILITY: [facility] PATIENT NAME: Aime Calderón : 1940 MR: [id number] V: [id number] EXAM DATE: [id number] ORDERING PHYSICIAN: CHRISTOPHER ARAYA TECHNOLOGIST: Location: [facility] [place] Patient: Aime Calderón : 1940 Visit/Account:[id number] Date of Sevice: 10/07/[address] scan without contrast COMPARISONS: Head CT scan without contrast dated June 22, 2016 ADDITIONAL PERTINENT HISTORY: Stroke like symptoms TECHNIQUE: Multiple axial images were obtained from the skull base to the vertex without IV contrast . One of the following dose optimization techniques was utilized in the performance of this exam: Aut omated exposure control; adjustment of the mA and/or kV according to the patient's size; or use of an iterative reconstruction technique. Specific details can be referenced in the facility's radiology CT exam operational policy. FINDINGS: Midline shift: Negative Ventricles: Mild enlargement of the lateral and third ventricles. Otherwise negative. Brain parenchyma: Patchy hypoattenuation within the periventricular and subcortical white matter, no nspecific but likely representing small vessel ischemic change on a chronic basis. No intraparenchyma l hemorrhage or mass effect. Slightly more focal region of decreased attenuation involving the subins ular white matter which may represent a more focal region of remote infarct. Extra-axial spaces: Negative Intracranial vasculature: Cavernous internal carotid and distal vertebral artery calcifications. Oth erwise negative Osseous structures: Negative Paranasal sinuses and mastoid air cells: Mild mucosal thickening involving both maxillary sinuses. O therwise negative Surrounding soft tissues and orbits: Negative IMPRESSION: 1. Age related changes as described above. 2. Slightly more focal region of decreased attenuation involving the subinsular white matter which ma y represent a subacute to early remote area of infarct. 3. No intraparenchymal hemorrhage Report Dictated By: Taqueria Magallanes MD at 10/07/2017 8:21 AM Report E-Signed By: Taqueria Magallanes MD at 10/07/2017 8:26 AM WSN:[id number]
[2017-10-07] MEDS ORDERED: CALC-1046 (08:30)
--- NOTE | 2017-10-07 08:31 | RADIOLOGY IMAGING REPORT ---
FACILITY: [facility] PATIENT NAME: Aime Calderón : 1940 MR: [id number] V: [id number] EXAM DATE: ORDERING PHYSICIAN: CHRISTOPHER ARAYA TECHNOLOGIST: Location: [facility] Patient: Aime Calderón : 1940 Visit/Account:[id number] Date of Sevice: 10/07/2017 CHEST SINGLE AP COMPARISONS: None. ADDITIONAL PERTINENT HISTORY: Stroke FINDINGS: Cardiomediastinal silhouette: Patient status post median sternotomy. Mild cardiomegaly. Pulmonary vasculature: Negative. Lung teague: Background interstitial scarring. No segmental consolidative process. Pleural spaces: Negative. Osseous structures: Negative. Surrounding soft tissues: Negative. IMPRESSION: 1. Mild cardiomegaly. 2. No evidence of acute cardiopulmonary disease. Report Dictated By: Taqueria Magallanes MD at 10/07/2017 8:26 AM Report E-Signed By: Taqueria Magallanes MD at 10/07/2017 8:27 AM WSN:[id number]
[2017-10-07] MEDS ORDERED: NS(*) 0.9% 50 ML BAG 50 ML ONE (08:47)
[2017-10-07] MEDS ORDERED: IOPAMIDOL 76% 75 ML INFUS BTL 75 ML ONE (08:47)
--- NOTE | 2017-10-07 09:28 | RADIOLOGY IMAGING REPORT ---
FACILITY: [facility] PATIENT NAME: Aime Calderón : 1940 MR: [id number] V: [id number] EXAM DATE: ORDERING PHYSICIAN: CHRISTOPHER ARAYA TECHNOLOGIST: Location: [facility] Patient: Aime Calderón : 1940 Visit/Account:[id number] Date of Sevice: 10/07/2017 CTA of the head and neck with and without contrast: CTA of the neck with and without contrast: Comparisons: None Additional pertinent history: Stroke like symptoms TECHNIQUE: Multiple axial images were obtained from the superior mediastinum through the mid portion of the brain during the continuous infusion of iodinated contrast. 2-D and 3-D reformatted images w ere obtained off the axial source data. Degrees of stenosis of the cervical internal carotid arterie s were obtained using NASCET criteria. One of the following dose optimization techniques was utilize d in the performance of this exam: Automated exposure control; adjustment of the mA and/or kV accordi ng to the patient's size; or use of an iterative reconstruction technique. Specific details can be referenced in the facility's radiology CT exam operational policy. CONTRAST: 50 mL of Isovue-370 FINDINGS: Thoracic aortic arch/origins of the great vessels: Mild calcified and noncalcified atherosclerotic p laque involving the thoracic aortic arch. No significant stenosis noted at the origins of the great v essels. Vertebral arteries: Patient is left vertebral dominant. Calcified atherosclerotic plaque at the orig ins of the left vertebral artery without significant stenosis. The remaining portions of the vertebra l arteries are unremarkable. Common carotid arteries: Negative Carotid artery bifurcations: Calcified and noncalcified atherosclerotic plaque at the bifurcations o f both common carotid arteries. Cervical internal carotid arteries: Negative Surrounding soft tissues: Negative Osseous structures: Mild spondylitic change involving the cervical spine. No acute appearing bony ab normalities. IMPRESSION: 1. Calcified and noncalcified atherosclerotic plaque at the bifurcations of both common carotid arter ies without significant stenosis. 2. Mild atherosclerotic disease involving the thoracic aortic arch and origins of the left vertebral artery without significant stenosis. CTA of the head with and without contrast: COMPARISONS: None ADDITIONAL PERTINENT HISTORY: Stroke like symptoms Technique: Multiple axial images were obtained from the skull base to the vertex during the continuou s infusion of IV contrast. 2-D and 3-D reformatted were obtained off the axial source data. One of the following dose optimization techniques was utilized in the performance of this exam: autom ated exposure control; adjustment of the mA and/or kA according to patient size; or use of iterative reconstruction technique. Specific details can be referenced in the facility?s radiology CT exam oper ational policy. CONTRAST: 50 mL of Isovue-370 FINDINGS: Vascular variants: Azygos A2 segment. Visualized vertebrobasilar system: Minimal calcified atherosclerotic plaque involving the distal left vertebral artery. Distal internal carotid arteries: Cavernous internal carotid artery calcifications. Otherwise negativ e Internal carotid artery bifurcation: Negative A1 and M1 segments: Negative A2 and M2 segments: Negative Anterior communicating artery: Negative P1 segments: Negative Brain parenchyma: Patchy hypoattenuation within the periventricular and subcortical white matter com patible with small vessel ischemic change on a chronic basis. No intraparenchymal hemorrhage. Osseous structures: Negative Visualized paranasal sinuses and mastoid air cells: Negative IMPRESSION: 1. Minimal atherosclerotic disease involving the arterial vasculature of the head. 2. No evidence of acute intracranial pathology. 3. No significant stenosis or large vessel occlusion noted. Report Dictated By: Taqueria Magallanes MD at 10/07/2017 9:15 AM Repor E-Signed By: Taqueria Magallanes MD at 10/07/2017 9:25 AM WSN:[id number]
[2017-10-07] MEDS ORDERED: ONDANSETRON 4 MG/2 ML VIAL IVP ONE (09:45)
[2017-10-07 10:15] VITALS: BP 128/96
== END 2017-10-07 10:45 | disposition short-term general hospital (02) ==
LOC: ER 07:59
DX: I63.8 Other cerebral infarction (principal); R47.01 Aphasia; E78.5 Hyperlipidemia, unspecified
CPT/HCPCS: 36416; 81001; 82948; 84484; 85025; 85610; 85730; 93005; 96374; 99285; J2405; J7050; Q9967; 82040; 82247; 82310; 82374; 82435; 82565; 82947; 84075; 84132; 84155; 84295; 84450; 84460; 84520

== ENCOUNTER → 2017-10-07 | Outpatient (REF) ==
[~2017-10-07] MED LIST changes: +CALC-1046; +CYAN25004; +FLUO40CA76 PO; +IRON150C19 PO; +ROSU20TA23 PO
== END ==
LOC: AMB 09:55
PROVIDERS: ATTEND Nurse Practitioner
DX: I46.9 Cardiac arrest, cause unspecified (principal)

== ENCOUNTER → 2017-10-07 | Outpatient (CLI) | payer MEDICARE, OTHER | LOC: AMB 07:29 | PROVIDERS: ATTEND Nurse Practitioner | DX: R13.0 Aphagia (principal) | CPT/HCPCS: A0425; A0427 ==

== ENCOUNTER 2018-05-18 09:45 | Outpatient (RCR) | payer MEDICARE, OTHER ==
--- NOTE | 2018-02-20 14:53 | PT INITIAL EVALUATION ---
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 He reports that he was [facility] and then spent one month in acute rehabilitation and then spent the last 2 months with home health physical therapy, occupation therapy, and speech. He reports that he transitioned from using the FWW to independent the last few weeks and denies any current falls. He reports that he has come along way in his recovery and would like to further improve his gait mechanics, balance, strength, and endurance. He reports that he has RA and reports minimal hand and joint discomfort as a result. REHAB PROBLEM LIST: Decreased Strength Decreased Endurance Decreased Balance Decreased Function Decreased ADL's Decreased Mobility Decreased Gait PREVIOUS MEDICAL HISTORY: See EMR OCCUPATION: Retired OBJECTIVE: Posture: He demonstrated forward head, B rounded shoulders, increased thoracic kyphosis, and decreased lumbar lordosis. ROM: B UE's and B LE's: WFL's Strength: R shoulder flexion, abduction, extension, R elbow flexion and extension: 4/5 and R syrup maker strength: 83 pounds. L shoulder flexion, abduction, extension, L elbow flexion and extension: 5/5. L syrup maker strength: 88 pounds. R hip flexion, abduction, extension, R knee flexion and extension, R ankle PF and DF: 4/5. L hip flexion, abduction, extension, L knee flexion and extension, L ankle PF and DF: 5/5. He did not experience any pain during MMT's. Special Tests: 6 minute walk test: 1368 feet. 5 sit to/from standin.16 seconds. Mobility: Independent Gait: Without AD, he demonstrated the following gait mechanics: increased base of support, decreased R UE swing, decreased pelvic rotation, decreased R step clearance (every once in a while), equal step lengths, and no LOB's. Balance: If he was able to utilize all of this 3 systems (vestibular, somatosentation, and eyes), he demonstrated minimal to no sway (which is normal); however, if his vestibular system was isolated he demonstrated moderate sway but was able to self correct without B UE support. Other Objective Findings: BP: 140/78. HR: 59 bpm. SPO2%: 95%. ASSESSMENT: Kevon will benefit from skilled physical therapy addressing the listed impairments to improve function and return to prior level of function. Short Term Goals 8 weeks: Pt will demonstrate significant improvement in his B UE's, core, and B LE's from baseline to 4+/5 or greater to improve function and QOL. 8 weeks: Pt will demonstrate significant improvement in his endurance from baseline to greater than 2000 feet in 6 minutes to improve function and QOL. Patient's Goals improve strength, endurance PLAN: Patient to be seen for Strengthening/condition Range of Motion Spinal Stabilization Work Hardening/Cond Stretching Neuromuscular Re-ed Closed Chain Program Posture/Body mechanics Gait Trg/Balance Trg Home Exercise Program Therapeutic Activities 2x/Week for 2 Months If you have any questions, comments, or concerns about this report or plan, please contact me at . Thank you, Wellington Roe, PT, DPT MTDD
--- NOTE | 2018-02-23 13:13 | SPEECH INITIAL EVALUATION ---
Patient: Aime Calderón Patient : 1940 Therapist: Tahmina Valenzuela M.S., [facility]-BACKUP ENGINEER Date of Evaluation: 02-19-18, 02-22-18 Medical Diagnosis: Post CVA Treatment Diagnosis: Receptive and Expressive Aphasia BACKGROUND The patient is a 77 year old male. He presents to speech therapy post CVA with complaints of decreased functional communication and decreased independence with IADLs in particular meds management and driving. Decreased skill with reading comprehension is particularly concerning to him as he was an avid reader prior to CVA. He reports that he was transferred to [facility] following the CVA. He spent one month in acute rehabilitation before DC to home health physical therapy, occupation therapy, and speech therapy. The patient lives with his spouse who assist with transportation, meds management and other IADLs at this time. COGNITIVE / LINGUISTIC EVALUATION LANGUAGE The [place]ino Diagnostic Aphasia Examination (BDAE) Short Form: Administered to assess current language skills. The raw scores are the correct responses per subtest. Percentile rankings are also recorded which compare an individuals score to normative data. Severity ratings are classified as follows: 0-39% severe, 40-69% moderate, 70-89% mild, 90-100% normal indicates top 3 most severely impacted domains Task Raw Score Percentile Rank Word Comprehension 100 Commands 09/22 45 Complex Ideational 07/19 100 Automatized Sequences 05/17 100 Repetition (Words) 06/17 100 Repetition (Sentences) 03/17 100 Responsive Naming 11/22 100 Merino Naming Test 80 Special Categories 01/24 100 Basic Symbol Recognition 05/17 100 Number Matching 05/17 100 Picture-Word Matching 05/17 100 Reading (Words) 100 Reading (Sentence) 04/17 70 Reading Comp (Sentence) 03/18 50 Reading Comp (Paragraph) 04/16 70 Written Communication: Decreased motor facility (laborious grapheme formation, partly malformed letter formation), spelling errors, grammatical and syntactic errors including word omission. Functional written accuracy approximately 85% COGNITIVE 1. Clock Drawing: demonstrates good visuospatial, planning, number and time concepts. Within normal limits. 2. Personal Facts: Demonstrated good recall of lifelong facts and demonstrates new learning with recall. 3. Moyers Making Test Part A: Completed in 55sec. Average completion time 29sec. Most complete within 90sec. No errors Part B: Completed in 208sec . Average completion time 75sec. Most complete within 273sec. 4 errors corrected with min clinician assist. STROKE IMPACT SCALE (SIS) 8 domain;59 item patient self-assessment. Each item is rated on a 5-Point Likert scale in terms of the difficulty the patient has experienced in completing each item. A score of 1 = an inability to complete the item. A score of 5 = no difficulty experienced at all. Summative scores are generated for each domain. A lower score indicates higher impact severity. Clients score can be compared against the normative score of 50. indicates top 3 most severely impacted domains Physical Problems: 45 Memory and Thinkin Mood/Emotions: 16 Communication: 44 Daily Activities: 34 Mobility at Home and Community 64 Hand Use 52 Participation 34 SPEECH: Pt spouse reports occasional motor speech errors. None noted during evaluation. VOICE: Pt reports no change post CVA. No vocal deficits noted. DYSPHAGIA: Pt reports no change post CVA COGNITIVE / COMMUNICATION SUMMARY The patient presents with mild cognitive and expressive/receptive language deficits that reduce functional communication in the home and community, and limit independence with IADLs . Oral and written modalities are impacted and demonstrate poor comprehension, disorganization and grammatical/syntactic errors. Skilled speech therapy services are medically necessary to address these deficits and support patient return to PLOF and independence and reach his personal goals of return to driving and improved reading comprehension. A referral to [facility] or other similar service is recommended to address patient reports of disorders of mood/emotion as recorded on the Stroke Impact Scale. RECOMMENDATIONS 1. ST 2xwk12 2. Referral to [facility] or other similar service to address patient reports of disordered mood/emotion as recorded on the Stroke Impact Scale. PROGNOSIS Very good : responsive to clinician cuing, awareness of deficits POC Short-Term Goals 1. Pt will return to indep IADLs including meds management and driving. 2. Pt will demonstrate functional expressive language in verbal and written modalities with appropriate organization and without grammatical error or word omission at 95% accuracy indep during structured conversation level tasks. 3. Pt will demonstrate function expressive language in written modality with correct spelling of common irregular words at 95%acc indep in sentences. 4. Pt will demonstrate functional receptive language in reading modality with demonstrated comprehension of written texts at 2-3 paragraph level at 95% acc. Indep. Long-Term Goals Pt will return to PLOF with IADLs and expressive/receptive language in oral and written modalities. Thank you for this referral. Please call [phone] Tahmina Valenzuela M.S., CCC-BACKUP ENGINEER [facility] [employer] Certified [facility]ysphagia [facility] Care Certified Physician Signature Date MTDD
--- NOTE | 2018-03-16 16:15 | OT INITIAL EVALUATION ---
SUBJECTIVE: Patient is a 77 year old right hand dominate male referred to OP OT services for evaluation and treatment status post CVA which occurred late September of 2017. Patient has been coming to OP PT and MORPHOLOGIST and is coming to OT to address right hand weakness and coordination deficits. Patient reports that he is able to complete self cares, but does have difficulty with fine motor coordination and that he drops objects frequently. Patient does the cooking and cleaning since the CVA and his now takes care of the finances. Patient is not driving. Previous Medical History: please refer to chart Occupation: N/A OBJECTIVE: ROM: AROM Right Left Shoulder Flexion WFL WFL Shoulder Extension WFL WFL Shoulder Abduction WFL WFL Elbow Flexion/Extension WFL WFL Wrist Flexion/Extension WFL WFL Strength: MMT: Right Left Shoulder Flexion 5/5 5/5 Shoulder Extension 5/5 5/5 Shoulder Abduction 5/5 5/5 Elbow Flexion/Extension 5/5 5/5 Wrist Flexion/Extension 5/5 5/5 (5= normal, 4= good, 3= fair, 2= poor, 1= trace) Data Entry Processor Right = 76# (Age/gender normative= 65.7#) Left=93.7# (Age/gender normative= 55#) Lateral Pinch Right = 14# (Age/gender normative= 20.5#) Left= 16.3# (Age/gender normative= 19.1#) 3 Point Pinch Right = 15.7# (Age/gender normative= 18.7#) Left= 17.7# (Age/gender normative= 18.3#) Sensation: Patient has full sensation. He was able to feel touch normally on the right hand using 2 point discrimination Vision: patient states that he feels that he has peripheral field deficits in both eyes Special Test: 9 Hole Peg Test (dexterity) Right= 38 seconds (Age/gender normative= 22.9 seconds) Left= 26 seconds (Age/gender normative= 26.4 seconds) ASSESSMENT Patient demonstrates with decreased pinch strength and increased difficulty in fine motor coordination of the right hand. Data Entry Processor is strong. The reports of dropping objects appears to be related to pinch strength. Patient did not have any issues with sensation. Patient will benefit from OT services to address right hand fine motor coordination and pinch strength to improve self care performance. Short Term Goals 1.Patient will increase lateral pinch strength on the right hand by 3# in order to hold objects without dropping. 2.Patient will increase 3 point pinch on the right hand by 3 # in order to open up containers. 3.Patient will decrease time on the 9 Hole Peg Test by 5 seconds on the right hand to complete self cares in a timely manner. PLAN: Plan to see patient 2 times a week for 8 weeks to increase functional of right hand to improve independence with ADLs and IADLs. Plan of care to include ther ex, ther act, self cares, Thank you for this referral. If you have any questions, concerns, or comments about this report or plan, please contact me at [phone]. Kadie Nolasco MS, OTR/L Occupational Therapist [facility]
--- NOTE | 2018-04-03 13:29 | PT PLAN OF CARE ---
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 Treatment Diagnosis: same, altered gait, decreased strength and endurance Date of Onset: 10/07/17 Date of Initial Evaluation: 02/19/18 Date patient was last seen: 04/03/18 Number of treatments: 10 Number of cancellations/No shows: 1 INTERVENTIONS: Strengthening/condition Range of Motion Spinal Stabilization Work Hardening/Cond Stretching Neuromuscular Re-ed Closed Chain Program Posture/Body mechanics Gait Trg/Balance Trg Home Exercise Program Therapeutic Activities GOALS: 8 weeks: Pt will demonstrate significant improvement in his B UE's, core, and B LE's from baseline to 4+/5 or greater to improve function and QOL. Met 8 weeks: Pt will demonstrate significant improvement in his endurance from baseline to greater than 2000 feet in 6 minutes to improve function and QOL. NM PATIENT'S GOAL: improve strength, endurance Status of Patient's Goals: Progressed well Patient Compliance: Good Prognosis: Good Reasons for continuing therapy: This is a progress note for Kevon Calderón. He reports that he is doing well. He reports that he continues to have his good days and bad days. He reports that he feels like he has made progress in his strength, balance, endurance, and gait and would like to continue to progress toward full recovery. He denies any recent falls. He demonstrated significant improvements in his L LE strength from 4/5 to 4+/5 to 5/5 in all muscle groups. He demonstrated a significant improvement in his endurance as he was able to perform the 6 minute walk test and demonstrated an improvement from 1368.5 feet to 1624.5 feet. Furthermore, he demonstrated a significant improvement in his balance strategies especially when the vestibular system was isolated as he was able to maintain for the full 30 seconds with minimal sway. Lastly, he demonstrated abolished R LE foot slap during gait, which is a significant improvement. In all, he has progressed well with gait, endurance, strength, and balance; however, we would like to see his at least 10 more sessions to demonstrate a closer to full recovery prior to discharge and be more independent with his HEP. Posture: He demonstrated forward head, B rounded shoulders, increased thoracic kyphosis, and decreased lumbar lordosis. ROM: B UE's and B LE's: WFL's Strength: R hip flexion, abduction, extension, R knee flexion and extension, R ankle PF and DF: 4+/5 to 5/5. L hip flexion, abduction, extension, L knee flexion and extension, L ankle PF and DF: 5/5. He did not experience any pain during MMT's. Palpation: Special Tests: 6 minute walk test: 1624.5 feet. 5 sit to/from standin seconds. Mobility: Independent If you have any questions, please contact me at [phone]. Thank you, Wellington Roe, PT, DPT MTDD
--- NOTE | 2018-04-03 14:13 | SLP PLAN OF CARE ---
SPEECH PATHOLOGY PROGRESS REPORT Progress Note Date: 03/29/18 Clinician: Tahmina Valenzuela MS, CCC-BUILD AND DEPLOYMENT ENGINEER Patient: Kevon Calderón : 1940 Diagnosis: Expressive Aphasia Post CVA The patient has been attending ST at [facility] 2/wk since his most recent evaluation on 02-19-18. He attends scheduled visits regularly. His spouse provides transportation assistance for all appointments. Spouse also assists with meds management. The patient has been working on the following short term goals: Short-Term Goals 1. Pt will return to indep IADLs including meds management and driving. Progressing: Pt is now co-managing meds management with his spouse. He is alerted by am/pm alarms on his phone. He reports he informs his its time for my meds when alarms trigger. Spouse continues to fill meds box. 2. Pt will demonstrate functional expressive language in verbal and written modalities with appropriate organization and without grammatical error or word omission at 95% accuracy indep during structured conversation level tasks. Progressing: Organizational language in verbal mobility continues to be disorganized with pt often backtracking to include missed details. Written modality demonstrates improved organization; however grammatical errors persist. Verb tense changes are particularly difficult. Pt often omits the grammatical marker indicating tense change. 3. Pt will demonstrate function expressive language in written modality with correct spelling of common irregular words at 95%acc indep in sentences. Progressing: Functional spelling deficits continue. High frequency words are misspelled to the point that functional communication is reduced. Self- identification of errors at approx. 75% indep. One errors are identified with text, pt corrects errors indep or with min assist. 4. Pt will demonstrate functional receptive language in reading modality with demonstrated comprehension of written texts at 2-3 paragraph level at 95% acc. Indep. Progressing: Pt reports increased indep reading outside of tx as recommended. He is currently reading the nonfiction book, Stronger After Stroke. He independently marked target summarizing information and used this information to describe/summarize the book to the BUILD AND DEPLOYMENT ENGINEER. Min assist was provided for verbal organization of information. Inclusion of necessary detail was performed with min assist or independently. Long-Term Goals Pt will return to PLOF with IADLs and expressive/receptive language in oral and written modalities. SUMMARY The patient demonstrates improved expressive language skills in written/read/verbal modalities. He is increasingly participating in IADLs at home. Disorganized verbal language and grammatical/spelling errors in written communication persist and continue to reduce functional communication. RECOMMENDATION In response to the patients progress, it is recommended ST continue at 2wk12 to address deficits in expressive language and return to PLOF with IADLs PROGNOSIS: Very Good. Thank you for this referral. Please call [phone] Tahmina Valenzuela M.S., [facility]-BUILD AND DEPLOYMENT ENGINEER Physician Signature MTDD
--- NOTE | 2018-05-10 09:44 | OT DISCHARGE SUMMARY ---
SUBJECTIVE: Patient is a 77 year old right hand dominate male referred to OP OT services for evaluation and treatment status post CVA which occurred late September of 2017. Patient has been coming to OP PT and PUBLICIST and is coming to OT to address right hand weakness and coordination deficits. Patient was seen for 10 total visits. 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 89.3# (Age/gender normative= 65.7#) Left=93.7# (Age/gender normative= 55#) Lateral Pinch Right = 14#, now 17.3# (Age/gender normative= 20.5#) Left= 16.3# (Age/gender normative= 19.1#) 3 Point Pinch Right = 15.7#, now 19.3# (Age/gender normative= 18.7#) Left= 17.7# (Age/gender normative= 18.3#) Sensation: No changes in sensation Vision: patient states that he feels that he has peripheral field deficits in both eyes Special Test: 9 Hole Peg Test (dexterity) Right= 38 seconds, now 30 seconds (Age/gender normative= 22.9 seconds) Left= 26 seconds (Age/gender normative= 26.4 seconds) ASSESSMENT 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 Patient also decreased time on the fine motor coordination test. Increased strength and improved right hand coordination has increased patient's independence with self cares and overall endurance. Patient made excellent progress in therapy sessions. Patient has met all of his goals as established in the initial evaluation and will be discharged from OT services at this time. Short Term Goals 1.Patient will increase lateral pinch strength on the right hand by 3# in order to hold objects without dropping. MET 2.Patient will increase 3 point pinch on the right hand by 3 # in order to open up containers. MET 3.Patient will decrease time on the 9 Hole Peg Test by 5 seconds on the right hand to complete self cares in a timely manner. MET PLAN: Plan to discharge patient with goals met. Thank you for this referral. If you have any questions, concerns, or comments about this report or plan, please contact me at [phone]. Kadie Nolasco MS, OTR/L Occupational Therapist [facility]
--- NOTE | 2018-05-10 11:34 | PT PLAN OF CARE ---
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 Treatment Diagnosis: same, altered gait, decreased strength and endurance Date of Onset: 10/07/17 Date of Initial Evaluation: 02/19/18 Date patient was last seen: 05/10/18 Number of treatments: 20 Number of cancellations/No shows: 0 INTERVENTIONS: Strengthening/condition Range of Motion Spinal Stabilization Work Hardening/Cond Stretching Neuromuscular Re-ed Closed Chain Program Posture/Body mechanics Gait Trg/Balance Trg Home Exercise Program Therapeutic Activities GOALS: 8 weeks: Pt will demonstrate significant improvement in his B UE's, core, and B LE's from baseline to 4+/5 or greater to improve function and QOL. Met 8 weeks: Pt will demonstrate significant improvement in his endurance from baseline to greater than 2000 feet in 6 minutes to improve function and QOL. MET PATIENT'S GOAL: improve strength, endurance: MET Status of Patient's Goals: MET Patient Compliance: Good Prognosis: Good Reasons for continuing therapy: This is a progress note for Kevon Calderón. He reports that he is doing well. He reports that with his balance, endurance, and strength he has return to 95% of what he considers to be his normal. He reports that he is lacking the 5% based on his endurance. Otherwise, he denies any pain. He is progressing well and demonstrated significant improvements in his endurance, strength, and balance and is close to returning to prior level of function. We discuss the plan moving forward by developing a home exercise program that he will be able to continue to maintain and improve his balance, endurance, and strength over the next two weeks so that we know that he is independent and will perform it so all is maintained. Then, we will discharge from PT. Posture: He demonstrated forward head, B rounded shoulders, increased thoracic kyphosis, and decreased lumbar lordosis. ROM: B UE's and B LE's: WFL's Strength: R hip flexion, abduction, extension, R knee flexion and extension, R ankle PF and DF: 5/5. L hip flexion, abduction, extension, L knee flexion and extension, L ankle PF and DF: 5/5. He did not experience any pain during MMT's. Special Tests: 6 minute walk test: 5 feet. 5 sit to/from standin seconds. Mobility: Independent Physician Signature DATE If you have any questions, please contact me at [phone]. Thank you, Wellington Roe, PT, DPT MTDD
[~2018-05-18 09:45] MED LIST changes: +CALC-1046; -ROSU20TA23 PO; +ROSU20TA24 PO
== END 2018-05-20 ==
LOC: OT 09:45
PROVIDERS: ATTEND Internal Medicine
DX: I63.413 Cerebral infarction due to embolism of bilateral middle cerebral arteries (principal)
CPT/HCPCS: 97162; 97165; 97168

== ENCOUNTER 2018-08-15 10:15 | Outpatient (RCR) | payer MEDICARE, OTHER ==
--- NOTE | 2018-05-22 07:08 | PT PLAN OF CARE ---
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 Treatment Diagnosis: same, altered gait, decreased strength and endurance Date of Onset: 10/07/17 Date of Initial Evaluation: 02/19/18 Date patient was last seen: 05/21/18 Number of treatments: 23 Number of cancellations/No shows: 3 INTERVENTIONS: Strengthening/condition Range of Motion Spinal Stabilization Work Hardening/Cond Stretching Neuromuscular Re-ed Closed Chain Program Posture/Body mechanics Gait Trg/Balance Trg Home Exercise Program Therapeutic Activities GOALS: 8 weeks: Pt will demonstrate significant improvement in his B UE's, core, and B LE's from baseline to 4+/5 or greater to improve function and QOL. Met 8 weeks: Pt will demonstrate significant improvement in his endurance from baseline to greater than 2000 feet in 6 minutes to improve function and QOL. MET PATIENT'S GOAL: improve strength, endurance: MET Status of Patient's Goals: MET Patient Compliance: Good Prognosis: Good Reasons for continuing therapy: This is a progress note for Kevon Calderón. He reports that he is doing well. He reports that with his balance, endurance, and strength he has return to 95% of what he considers to be his normal. He reports that he is lacking the 5% based on his endurance. Otherwise, he denies any pain. He is progressing well and demonstrated significant improvements in his endurance, strength, and balance and is close to returning to prior level of function. We discuss the plan moving forward by developing a home exercise program that he will be able to continue to maintain and improve his balance, endurance, and strength over the next session so that we know that he is independent and will perform it so all is maintained. Then, we will discharge from PT. Posture: He demonstrated forward head, B rounded shoulders, increased thoracic kyphosis, and decreased lumbar lordosis. ROM: B UE's and B LE's: WFL's Strength: R hip flexion, abduction, extension, R knee flexion and extension, R ankle PF and DF: 5/5. L hip flexion, abduction, extension, L knee flexion and extension, L ankle PF and DF: 5/5. He did not experience any pain during MMT's. Special Tests: 6 minute walk test: 5 feet. 5 sit to/from standin seconds. Mobility: Independent Physician Signature DATE If you have any questions, please contact me at [phone]. Thank you, Wellington Roe, PT, DPT MTDD
--- NOTE | 2018-05-22 09:12 | SLP PLAN OF CARE ---
SPEECH PATHOLOGY PROGRESS REPORT Progress Note Date: 05/21/18 Clinician: Cassandra Chandra MS, CCC-HOUSEKEEPING LAUNDRY WORKER Patient: Kevon Calderón : 1940 Diagnosis: Expressive Aphasia s/p CVA The patient has been attending ST at [facility] 2/wk since his most recent evaluation on 02-19-18. He attends majority of scheduled visits, with two appointments missed secondary to spousal illness and a scheduling mix-up. The patient recently resumed driving activities with clearance from his neurologist, and has been transporting himself to appointments. His spouse continues to provide assistance with medication management. The patient has been working on the following short term goals: Short-Term Goals 1. Pt will return to indep IADLs including meds management and driving. Progressing: The pt has returned to driving with clearance from his neurologist. He has not encountered any issues with driving, and can appropriately describe precautions/strategies for road safety. The pt continues to co-manage his medications in conjunction with his spouse. He is alerted by am/pm alarms on his phone, and informs his its time for my meds when alarms trigger. Spouse continues to fill meds box. Spouse has reported some concerns re: safety in the kitchen, and the pt would like to increase participation in cooking activities. Will continue to address next reporting period with focus on sequencing, self-monitoring, and problem-solving for IADL participation. 2. Pt will demonstrate functional expressive language in verbal and written modalities with appropriate organization and without grammatical error or word omission at 95% accuracy indep during structured conversation level tasks. Progressing: Organizational language in verbal mobility continues to be mildly disorganized and vague with pt often backtracking to include missed details. Written modality demonstrates improved organization; however grammatical errors persist. Verb tense changes are particularly difficult. The pt also continues to demonstrate instances of anomia in conversation, but has responded well to use of semantic feature analysis / circumlocution strategy to repair communication breakdowns. Will continue to address in subsequent treatment sessions. 3. Pt will demonstrate function expressive language in written modality with correct spelling of common irregular words at 95%acc indep in sentences. Progressing: Functional spelling errors, missing grammatical markers, and word omissions continue. Once errors are identified, pt corrects mistakes either independently or with min assist. Will continue to focus on elevating pt independence for self-identification of spelling/writing mistakes. 4. Pt will demonstrate functional receptive language in reading modality with demonstrated comprehension of written texts at 2-3 paragraph level at 95% acc. Indep. Progressing: Pt continues to complete home reading activities outside of tx as recommended. Reading comprehension tasks completed with 75% accuracy, independently, increasing to 85% accuracy with min assist for use of reading comprehension techniques. Long-Term Goals Pt will return to PLOF with IADLs and expressive/receptive language in oral and written modalities. SUMMARY The patient demonstrates continued improvements in expressive language skills in written/read/verbal modalities. He continues to increase participation in IADLs at home, including return to driving tasks. Disorganized verbal language and grammatical/spelling errors persist in written communication. This continues to reduce functional communication. RECOMMENDATION In response to the patients progress, it is recommended ST continue at 2wk12 to address deficits in expressive language and return to PLOF with IADLs PROGNOSIS: Very Good. Steady progress since start of care. Strong motivation to participate. Thank you for this referral. Please call [phone] Cassandra Chandra M.S., CCC-HOUSEKEEPING LAUNDRY WORKER Physician Signature [*] [facility]
--- NOTE | 2018-05-23 11:13 | PT PLAN OF CARE ---
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 Treatment Diagnosis: same, altered gait, decreased strength and endurance Date of Onset: 10/07/17 Date of Initial Evaluation: 02/19/18 Date patient was last seen: 05/23/18 Number of treatments: 24 Number of cancellations/No shows: 3 INTERVENTIONS: Strengthening/condition Range of Motion Spinal Stabilization Work Hardening/Cond Stretching Neuromuscular Re-ed Closed Chain Program Posture/Body mechanics Gait Trg/Balance Trg Home Exercise Program Therapeutic Activities GOALS: 8 weeks: Pt will demonstrate significant improvement in his B UE's, core, and B LE's from baseline to 4+/5 or greater to improve function and QOL. Met 8 weeks: Pt will demonstrate significant improvement in his endurance from baseline to greater than 2000 feet in 6 minutes to improve function and QOL. MET PATIENT'S GOAL: improve strength, endurance: MET Status of Patient's Goals: MET Patient Compliance: Good Prognosis: Good Reasons for continuing therapy: This is a discharge note for Kevon Calderón. He reports that he is doing well. He denies any pain. He states that he feels comfortable with his home exercise program and feels like he is independent on it. He has progressed well within PT demonstrating the following improvements: return to prior level of function with his ADL's and IADL's, return to 5/5 core and B LE strength, return to prior balance strategies, and return to prior level of his function with endurance. He has met all of his goals. He in independent on his home exercise program. As a result, he will be discharged from PT to [facility]. Posture: He demonstrated forward head, B rounded shoulders, increased thoracic kyphosis, and decreased lumbar lordosis. ROM: B UE's and B LE's: WFL's Strength: R hip flexion, abduction, extension, R knee flexion and extension, R ankle PF and DF: 5/5. L hip flexion, abduction, extension, L knee flexion and extension, L ankle PF and DF: 5/5. He did not experience any pain during MMT's. Special Tests: 6 minute walk test: 2025 feet. 5 sit to/from standin seconds. Mobility: Independent If you have any questions, please contact me at [phone]. Thank you, Wellington Roe, PT, DPT MTDD
--- NOTE | 2018-06-14 10:50 | SLP PLAN OF CARE ---
SPEECH PATHOLOGY PROGRESS REPORT Progress Note Date: 06/13/18 Clinician: Cassandra Chandra MS, CCC-SUMO WRESTLER Patient: Kevon Calderón : 1940 Diagnosis: Expressive Aphasia s/p CVA The patient has been attending ST at [facility] 2/wk since his most recent evaluation on 02-19-18. He has regularly attended all scheduled appointments this reporting period. The pt transports himself to and from appointments with clearance from his neurologist to resume driving activities. He is consistently motivated to participate, and enjoys completing activities and implementing trained strategies in home environment. The patient has been working on the following short term goals: Short-Term Goals 1. Pt will return to indep IADLs including meds management and driving. MET: The pt has returned to driving with clearance from his neurologist without incident. The pt is also largely independent with medication management, but often appropriately requests spousal supervision to ensure accuracy. Will update goal to more specifically target prospective thinking skills for functional problem solving (e.g., anticipation of obstacles/challenges), planning, and daily organization. 2. Pt will demonstrate functional expressive language in verbal and written modalities with appropriate organization and without grammatical error or word omission at 95% accuracy indep during structured conversation level tasks. Progressing: Pt demonstrates appropriate organization (without grammatical errors or word omissions) in written and verbal modalities with 90% acc, min cues. Organization of language in verbal modality continues to be mildly disorganized with intermittent restarts, revisions, and incomplete thought formulation. The pt also continues to demonstrate instances of anomia in conversation, but has responded well to use of semantic feature analysis / circumlocution strategy to repair communication breakdowns. Written modality demonstrates improved organization; however grammatical and spelling errors persist. Will continue to address. 3. Pt will demonstrate functional expressive language in written modality with correct spelling of common irregular words at 95% acc indep in sentences. Progressing: Pt is approaching his goal, demonstrating correct spelling of common irregular words at the sentence level with 90% acc indep increasing to 100% with min cues. Pt demonstrates increased independence with recognition and correction of spelling errors. Decreased instances of word omissions observed this reporting period. Will continue to focus on elevating pt independence for self-identification of spelling/writing mistakes. 4. Pt will demonstrate functional receptive language in reading modality with demonstrated comprehension of written texts at 2-3 paragraph level at 95% acc. Indep. Progressing: Insufficiently targeted this reporting period, with primary emphasis placed on functional expressive language and higher-level cognitive deficits. Pt continues to complete home reading activities outside of tx as recommended. Reading comprehension performance maintained in comparison to prior reporting period, with the pt exhibiting 75% accuracy independently, increasing to 85% accuracy with min assist for implementation of reading comprehension techniques. UPDATED POC 1. Pt will utilize internal and external organization techniques to improve prospective thinking skills for participation in daily executive function tasks at 90% acc, min cues. New Goal 06/13/18 2. Pt will demonstrate functional expressive language in verbal and written modalities with appropriate organization and without grammatical error or word omission at 95% accuracy indep during structured conversation level tasks. 3. Pt will demonstrate functional expressive language in written modality with correct spelling of common irregular words at 95% acc indep in sentences. 4. Pt will demonstrate functional receptive language in reading modality with demonstrated comprehension of written texts at 2-3 paragraph level at 95% acc. Indep. Long-Term Goals Pt will return to PLOF with IADLs and expressive/receptive language in oral and written modalities. SUMMARY The patient demonstrates improved expressive language skills in written and verbal modalities. He continues to increase participation in IADLs at home with implementation of external organization and memory aides. Disorganized verbal fluency and word finding deficits persist in spoken language, with ongoing grammatical/spelling errors in written communication. This continues to reduce functional communication. However, the pt has responded well to instruction in semantic mapping, organization strategies, and error awareness techniques to repair communicative breakdowns. RECOMMENDATION In response to the patients progress, it is recommended ST continue at 2wk12 to address deficits in expressive language and return to PLOF with IADLs PROGNOSIS: Very Good. Steady progress since start of care. Strong motivation to participate. Thank you for this referral. Please call [phone] Cassandra Chandra M.S., CCC-SUMO WRESTLER Physician Signature [*] [facility]
--- NOTE | 2018-07-16 13:38 | SLP PLAN OF CARE ---
SPEECH PATHOLOGY PROGRESS REPORT Progress Note Date: 07/13/18 Clinician: Tahmina Valenzuela MS, CCC-WHITE SHOE RAGGER Patient: Kevon Calderón : 1940 Diagnosis: Expressive Aphasia s/p CVA The patient has been attending at [facility] 2/wk since his most recent evaluation on 02-19-18. He has regularly attended all scheduled appointments this reporting period. He is consistently motivated to participate, and enjoys completing activities and implementing trained strategies in home environment. He consistently comes to sessions with functional ideas and questions to address during that day. PLAN OF CARE The patient has been working on the following short term goals: Short-Term Goals 1. Pt will utilize internal and external organization techniques to improve prospective thinking skills for participation in daily executive function tasks at 90% acc, min cues. Progressing: Pt utilizes internal and external organization techniques to improve thinking skills and participating in daily executive function tasks. The pt reports that he uses his manufacturing planner, notebook, and to-do lists at home to help with daily activities such as cooking and shopping. While pt uses the external strategies to help with organization, using both internal and external organization techniques to improve thinking skills and problem solving is difficult for him. Will continue to address. 2. Pt will demonstrate functional expressive language in verbal and written modalities with appropriate organization and without grammatical error or word omission at 95% accuracy indep during structured conversation level tasks. Progressing: Pt demonstrates appropriate organization (without grammatical errors or word omissions) in written and verbal modalities with 90% acc, min cues. Organization of language in verbal modality continues to be mildly disorganized with intermittent restarts, revisions, and incomplete thought formulation, although this has reduced since last reporting period. The pt also continues to demonstrate instances of anomia in conversation, but has responded well to use of semantic feature analysis / circumlocution strategy to repair communication breakdowns. Pt demonstrates reduced tendency to abandon thoughts despite abandoning sentence productions. Written modality demonstrates improved organization; however grammatical and spelling errors persist. Will continue to address. 3. Pt will demonstrate functional expressive language in written modality with correct spelling of common irregular words at 95% acc indep in sentences. Progressing: Pt is approaching his goal, demonstrating correct spelling of common irregular words at the sentence level with 90% acc indep increasing to 100% with min cues. Pt demonstrates increased independence with recognition and correction of spelling errors. Decreased instances of word omissions observed this reporting period. Pt often leaves off suffixes while writing, and needs min cues to draw attention to the mistake. Will continue to focus on elevating pt independence for self-identification of spelling/writing mistakes. 4. Pt will demonstrate functional receptive language in reading modality with demonstrated comprehension of written texts at 2-3 paragraph level at 95% acc. Indep. Progressing: Pt continues to complete home reading activities outside of tx as recommended. Reading comprehension performance increased in comparison to prior reporting period, with the pt exhibiting 85% accuracy independently, increasing to 95% accuracy with min assist for implementation of reading comprehension techniques (read aloud, use straight edge, write notes in book or notebook, look up unfamiliar words or concepts). Will continue to address. Long-Term Goals Pt will return to PLOF with IADLs and expressive/receptive language in oral and written modalities. SUMMARY The patient demonstrates improved expressive language skills in written and verbal modalities. He continues to increase participation in IADLs at home with implementation of external organization and memory aides. Disorganized verbal fluency and word finding deficits persist in spoken language, with ongoing, if reduced, grammatical/spelling errors in written communication. This continues to reduce functional communication. However, the pt has responded well to instruction in semantic mapping, organization strategies, and error awareness techniques to repair communicative breakdowns. RECOMMENDATION In response to the patients progress, it is recommended ST continue with current Plan of Care at 2wk12 to address deficits in expressive language and return to PLOF with IADLs. PROGNOSIS: Very Good. Steady progress since start of care. Strong motivation to participate. Thank you for this referral. Please call [phone] Tahmina Valenzuela M.S., CCC-WHITE SHOE RAGGER Physician Signature LYNN
--- NOTE | 2018-08-10 09:28 | SLP PLAN OF CARE ---
SPEECH PATHOLOGY PROGRESS REPORT Progress Note Date: 08/08/2018 Clinician: Cassandra Chandra MS, [facility])-SALES DEVELOPMENT MANAGER, Iwona Thakur, Methods And Procedures Analyst Clinician Patient: Kevon Calderón : 1940 Diagnosis: Expressive Aphasia s/p CVA The patient has been attending ST at [facility] 2/wk since his most recent evaluation on 02-19-18. He has regularly attended all scheduled appointments this reporting period. He is motivated to participate, and enjoys completing activities and implementing trained strategies in home environment. He consistently comes to sessions with functional ideas, materials, and questions to address during that day. PLAN OF CARE The patient has been working on the following short term goals: 1. Pt will utilize internal and external organization techniques to improve prospective thinking skills for participation in daily executive function tasks at 90% acc, min cues. Progressing: Pt utilizes internal and external organization techniques to improve thinking skills and participation in daily executive function tasks with appx 80% accuracy when provided with mod to min assistance. The pt reports that he uses his notebook and to-do lists at home to help with daily activities such as cooking, shopping, and appointments. While pt uses the external strategies to help with task organization, using internal organization techniques to improve thinking skills and problem solving is difficult for him. This skill is improving, but will continue to be addressed next reporting period. 2. Pt will demonstrate functional expressive language in verbal and written modalities with appropriate organization and without grammatical error or word omission at 95% accuracy indep during structured conversation level tasks. Progressing: Pt demonstrates appropriate organization (without grammatical errors or word omissions) in written and verbal modalities with 90% acc, min cues. Verbal language production continues to be mildly disorganized with intermittent restarts, revisions, and incomplete thought formulation. Verbal language deficits have continued to steadily decrease in severity. The pt also continues to demonstrate instances of anomia in conversation, but has responded well to use of semantic feature analysis and circumlocution strategy to repair communication breakdowns. Written expression is increasingly organized; however grammatical errors and word omissions intermittently persist. Will continue to target. 3. Pt will demonstrate functional expressive language in written modality with correct spelling of common irregular words at 95% acc indep in sentences. Met: Goal has been met with increased use of compensatory spelling strategies and decreased functional impact on communication. Pt demonstrates correct spelling during written expressive language tasks at 100% accuracy with use of compensatory strategies to look up correct spelling if uncertain. Pt demonstrates independence with recognition and correction of spelling errors. STG 3 will be discontinued at this time. 4. Pt will demonstrate functional receptive language in reading modality with demonstrated comprehension of written texts at 2-3 paragraph level at 95% acc. Indep. Met: Pt continues to complete home reading activities outside of tx as recommended. Reading comprehension performance increased in comparison to prior reporting period, with the pt exhibiting 95% accuracy independently, increasing to 100% accuracy with min assist for implementation of reading comprehension techniques (read aloud, use straight edge, write notes in book or notebook, look up unfamiliar words or concepts). Due to patient preference, will continue to incorporate reading activities for maintenance purposes, and as a vehicle to address deficits in written and verbal expression (e.g., construction of verbal and written summaries in response to written texts). Long-Term Goals Pt will return to PLOF with IADLs and expressive/receptive language in oral and written modalities. SUMMARY The patient demonstrates improved expressive language skills in written and verbal modalities. He continues to increase participation in IADLs at home with implementation of external organization and memory aides. Disorganized verbal fluency and word finding deficits persist in spoken language, with ongoing, though reduced, grammatical/word omitting errors in written communication. This continues to negatively impact functional communication. However, the pt has responded well to instruction in response elaboration, detail identification, semantic mapping, organization strategies, and error awareness techniques to repair communicative breakdowns and clarify communicative intent in both verbal and written expressive language. Reading comprehension has significantly improved with increasingly independent implementation of reading comprehension strategies. Will continue to incorporate reading comprehension activities to promote maintenance of acquired skills. RECOMMENDATION In response to the patients progress, it is recommended ST continue with current STG 1 and 2 at 2wk12 to address deficits in expressive language and return to PLOF with IADLs. Discontinue STG 3 due to goal being met. Maintain STG 4 due to patient preference. UPDATED POC 1. Pt will utilize internal and external organization techniques to improve prospective thinking skills for participation in daily executive function tasks at 90% acc, min cues. 2. Pt will demonstrate functional expressive language in verbal and written modalities with appropriate organization and without grammatical error or word omission at 95% accuracy indep during structured conversation level tasks. 3. Pt will maintain functional receptive language in reading modality with demonstrated comprehension of written texts at 2-3 paragraph level at 95% acc. Indep. PROGNOSIS: Very Good. Steady progress since start of care. Strong motivation to participate. Thank you for this referral. Please call [phone] Cassandra Chandra M.S., [facility])-SALES DEVELOPMENT MANAGER Iwona Thakur, Methods And Procedures Analyst Clinician Physician Signature [*] MTDD
== END 2018-08-19 ==
LOC: OT 10:15
PROVIDERS: ATTEND Internal Medicine
DX: I63.413 Cerebral infarction due to embolism of bilateral middle cerebral arteries (principal); M62.81 Muscle weakness (generalized)

== ENCOUNTER 2018-10-03 10:15 | Outpatient (RCR) | payer MEDICARE, OTHER ==
--- NOTE | 2018-08-22 15:14 | SLP PLAN OF CARE ---
SPEECH PATHOLOGY PROGRESS REPORT Progress Note Date: 08/22/2018 Clinician: Cassandra Chandra MS, CCC-HARD TILE SETTER Patient: Kevon Calderón : 1940 Diagnosis: Expressive Aphasia s/p CVA The patient has been consistently attending ST at [facility] 2/wk since his most recent evaluation on 02-19-18. Treatment activities have focused on expressive language and cognitive deficits (memory, executive function skills) s/p CVA. A progress note was most recently completed on 08/08/18, with consistent attendance of 3 out of 3 scheduled appointments since this date. Given the brevity of elapsed time since this assessment, progress has been limited. A new plan of care update is being completed for the purpose of our billing office. The pt remains highly motivated to participate, and enjoys implementing trained strategies in home environment. He consistently comes to sessions with functional ideas, materials, and relevant questions. PLAN OF CARE The patient has been working on the following short term goals: Short-Term Goals 1. Pt will utilize internal and external organization techniques to improve prospective thinking skills for participation in daily executive function tasks at 90% acc, min cues. Progressing: Pt utilizes internal and external organization techniques to improve thinking skills and participation in daily executive function tasks with appx 80% accuracy when provided with mod to min assistance. The pt reports that he uses his notebook and to-do lists at home to help with daily activities such as cooking, shopping, and appointments. While pt uses the external strategies to help with organization, using internal organization techniques to improve thinking skills and problem solving is difficult for him. This skill is improving but will continue to be addressed next reporting period. 2. Pt will demonstrate functional expressive language in verbal and written modalities with appropriate organization and without grammatical error or word omission at 95% accuracy indep during structured conversation level tasks. Progressing: Pt demonstrates appropriate organization (without grammatical errors or word omissions) in written and verbal modalities with 90% acc when provided with min cues. Verbal language production continues to be mildly disorganized with intermittent restarts, revisions, and incomplete thought formulation. Verbal language deficits have continued to steadily decrease in severity. The pt also continues to demonstrate instances of anomia in conversation, but has responded well to use of semantic feature analysis and circumlocution strategy to repair communication breakdowns. Written expression is increasingly organized; however grammatical errors and word omissions intermittently persist. Will continue to address. 3. Pt will demonstrate functional receptive language in reading modality with demonstrated comprehension of written texts at 2-3 paragraph level at 95% acc. Indep. Met: Pt continues to complete home reading activities outside of tx as recommended. Reading comprehension performance increased in comparison to prior reporting period, with the pt exhibiting 95% accuracy independently, increasing to 100% accuracy with min assist for implementation of reading comprehension techniques (refer back to the text, read aloud, use straight edge, context clues, research unfamiliar words or concepts). Due to patient preference, will continue to incorporate reading activities for maintenance purposes, and as a vehicle to address deficits in written and verbal expression (e.g., construction of verbal and written summaries in response to written texts). Long-Term Goals Pt will return to PLOF with IADLs and expressive/receptive language in oral and written modalities. SUMMARY The patient demonstrates improved expressive language skills in written and verbal modalities. He continues to increase participation in IADLs at home with implementation of external organization and memory aides. Disorganized verbal fluency and word finding deficits persist in spoken language, with ongoing, though reduced, grammatical/word omitting errors in written communication. This continues to reduce functional communication. However, the pt has responded well to instruction in semantic mapping, organization strategies, and error awareness techniques to repair communicative breakdowns in both verbal and written expressive language. Pt also often demonstrates lengthy pauses during verbal expression to support thought formulation and detail expansion. Despite compromising quantity of information, this compensation often increases the quality of verbal output. Reading comprehension continues to improve with implementation of reading comprehension strategies during structured tx activities and in home environment. Will continue to incorporate reading comprehension activities to promote maintenance of acquired skills. RECOMMENDATION In response to the patients progress, it is recommended ST continue with current POC 2x/wk for 5 additional weeks. Frequency has been reduced from 3 to 2 weekly visits in response to the pts progress. CONT POC 1. Pt will utilize internal and external organization techniques to improve prospective thinking skills for participation in daily executive function tasks at 90% acc, min cues. 2. Pt will demonstrate functional expressive language in verbal and written modalities with appropriate organization and without grammatical error or word omission at 95% accuracy indep during structured conversation level tasks. 3. Pt will maintain functional receptive language in reading modality with demonstrated comprehension of written texts at 2-3 paragraph level at 95% acc. Indep. PROGNOSIS: Very Good. Steady progress since start of care. Strong motivation to participate. Thank you for this referral. Please call [phone] Cassandra Chandra M.S., CCC-HARD TILE SETTER Physician Signature [*] MTDD
--- NOTE | 2018-10-04 11:43 | SLP DISCHARGE NOTE ---
SPEECH PATHOLOGY DISCHARGE SUMMARY Patient Name: Kevon Calderón Date of Report: 10/04/18 Date of : 1940, 77yo Clinician: Cassandra Chandra MS, CCC-CONTINUOUS CHURN BUTTERMAKER Treatment Diagnosis: mild receptive and expressive aphasia s/p CVA Mr. Kevon Calderón is a 73-year-old male initially referred for a cognitive linguistic evaluation at [facility] outpatient services on 02/19/18 due to complaints of decreased functional communication and reduced independence with IADLs s/p CVA. He has been consistently attending ST at [facility] 2-3x/wk , with primary focus of interventions placed on deficits in expressive language (speaking and writing), receptive language (listening and reading), and cognitive deficits (memory, executive function skills). He has exhibited high motivation throughout the course of speech pathology services, including consistent implementation of trained strategies in home environment. He frequently came to treatment sessions with functional ideas, materials, and relevant questions. From September 17 - September 28, 2018, ST interventions were interrupted secondary to fatigue associated with complications during cataract surgery. Per patient and spouse report, Mr. Calderón "went blue" on the table and required administration of Narcan due to extremely low blood pressure. Mr. Calderón is now doing well, feels he has made a full recovery. Mr. Calderón has been working towards the following goals since his most recent progress assessment on 08/22/18: 1. Pt will utilize internal and external organization techniques to improve prospective thinking skills for participation in daily executive function tasks at 90% acc, min cues. MET: Pt utilizes internal and external organization techniques to improve thinking skills and participation in daily executive function tasks with appx 90% accuracy when provided with occasional cues for task progression, info organization, and attention to detail. This has resulted in improved participation in daily activities such as cooking, shopping, and appointment management. 2. Pt will demonstrate functional expressive language in verbal and written modalities with appropriate organization and without grammatical error or word omission at 95% accuracy indep during structured conversation level tasks. MET: Pt demonstrates functional expressive language with appropriate organization and appreciation of communicative intent during 95% of opportunities indep, increasing to 100% with min cues for correction of grammatical errors. Pt demonstrates appropriate organization (without grammatical errors or word omissions) in both written and verbal modalities. 3. Pt will maintain functional receptive language in reading modality with demonstrated comprehension of written texts at 2-3 paragraph level at 95% acc. Indep. Met: Pt continues to exhibit maintenance of functional receptive language skills in reading modality with comprehension of written text (2-3 paragraphs) at 95- 100% acc. Pt independently utilizes reading comprehension strategies, including use of straight edge, underlining, note taking, context clues, and text reference. This has enabled him to return to participation in a previously enjoyed leisure activity, and an overall improvement in quality of life. JAIL GOAL Pt will return to PLOF with IADLs and expressive/receptive language in oral and written modalities. MET. SUMMARY Plan of care has been met. Throughout the course of interventions, Mr. Calderón returned to independence or modified independence with management of medications, finances, scheduling, driving, and cooking tasks. He further exhibited significant improvements in verbal and cognitive organization, effective receptive and expressive language skills, and overall, functional communication. Thank you for referring this patient to [facility] [place], Speech- Language Pathology. Please call [phone] to contact the CONTINUOUS CHURN BUTTERMAKER with questions or concerns. Respectfully, Cassandra Chandra M.S., [facility]-CONTINUOUS CHURN BUTTERMAKER Physician Signature Date [*] MTDD
== END 2018-10-03 13:33 | disposition home or self-care (01) ==
LOC: PT 10:15
PROVIDERS: ATTEND Internal Medicine
DX: I63.413 Cerebral infarction due to embolism of bilateral middle cerebral arteries (principal); M62.81 Muscle weakness (generalized)